=== PATIENT | female | born 1930 | race Caucasian/White ===

== ENCOUNTER → 2018-02-20 | Outpatient (CLI) | payer MEDICARE, BC ==
--- NOTE | 2018-02-22 08:22 | MR ---
EXAMINATION TYPE: MR lumbar spine wo/w con DATE OF EXAM: 02/20/2018 COMPARISON: CT lumbar spine February 12, 2018 HISTORY: Pathological fracture in neoplastic disease TECHNIQUE: Multiplanar, multisequence images of the lumbar spine is performed without and with IV contrast, util izing 8.5 mL intravenous Gadavist FINDINGS: Sagittal images of the lumbar spine show vertebral body alignment to appear satisfactory. T here is redemonstration of mild height loss L4 level, there is diffuse low T1 and T2 signal with enha ncement involving the entire vertebra extending into the bilateral pedicles involving entire L4 verte bra. There is additional smaller area of low T1 and T2 signal involving L3 vertebra with enhancement. Findings correlate with lytic lesions on CT. Seen better on CT there is cortical breakthrough on the left with soft tissue mass replacing bone. Multilevel disc desiccation is present. There is moderate disc space narrowing L2-L3 level. Moderate disc space narrowing L5-S1 level is seen. Small posterior disc herniations are noted at these levels effacing anterior thecal sac. Conus medullaris is somewha t low in position ending mid L2 level. No abnormal signal is noted. Axial images show the T12-L1 and L1-L2 levels to appear within normal limits. Sagittal images at L2-L3 level show mild to moderate disc space narrowing with heterogeneous Modic ty pe II endplate changes and mild to moderate anterior spurring. Axial images show mild broad disc bulg e mildly effacing anterior thecal sac. There is mild left greater than right bilateral inferior neura l foraminal narrowing. Mild facet arthropathy bilaterally is noted. Axial images at the L3-L4 level show moderate broad disc bulge effacing anterior thecal sac with mode rate facet degenerative changes and ligamentum flavum hypertrophy effacing posterior lateral thecal s ac. There is mild right greater than left bilateral neural foraminal narrowing. Axial images at the L4-L5 level shows mild mild broad-based posterior disc protrusion mildly effacing anterior thecal sac. There are mild to moderate facet degenerative changes and ligament flavum hyper trophy effacing posterior lateral thecal sac. Bilateral neural foramina are mildly narrowed. Axial images at L5-S1 level shows mild to moderate facet degenerative changes bilaterally. There is b road-based posterior disc protrusion seen. There is mild to moderate bilateral inferior neural forami nal narrowing noted. Spinal canal is minimally effaced anteriorly. No suspicious incidental retroperitoneal findings are seen. Paraspinal muscle shows mild generalized atrophy. IMPRESSION: Confirmation of destructive lesion L4 vertebra without significant posterior retropulsion with additional involvement in the L3 vertebra noted. Underlying malignancy is strongly favored thou gh somewhat unusual there is low T2 signal present. Correlate clinically.
== END ==
LOC: RADMRIMAIN 11:00
PROVIDERS: ATTEND Internal Medicine
DX: M79.89 Other specified soft tissue disorders (principal)
CPT/HCPCS: 82565; 84520; 72158; A9585

== ENCOUNTER → 2018-03-10 | Outpatient (CLI) | payer MEDICARE, BC ==
[2018-03-10 14:27] LABS: Basophils # (A) 0.1 k/uL (0-0.2); Basophils % (A) 1 %; Eosinophils # (A) 0.1 k/uL (0-0.7); Eosinophils % (A) 0 %; HCT 44.8 % (34.0-46.0); HGB 14.7 gm/dL (11.4-16.0); Lymphocytes % (A) 5 %; MCH 32.4 pg (25.0-35.0); MCHC 32.8 g/dL (31.0-37.0); MCV 98.8 fL (80.0-100.0); Mean Platelet Volume 7.7; Monocytes # (A) 1.2 k/uL (0-1.0); Monocytes % (A) 5 %; Neutrophils # (A) 19.3 k/uL (1.3-7.7); Neutrophils % (A) 88 %; Platelet Count 180 k/uL (150-450); RBC 4.54 m/uL (3.80-5.40); RDW 12.9 % (11.5-15.5); WBC 21.8 k/uL (3.8-10.6)
[2018-03-10 14:43] LABS: Calcium 8.4 mg/dL (8.4-10.2); Potassium 4.6 mmol/L (3.5-5.1); Prothrombin Time 10.7 sec (9.0-12.0)
[2018-03-10 15:02] LABS: Partial Thromboplastin Time 20.6 sec (22.0-30.0)
--- NOTE | 2018-03-10 15:36 | XR ---
EXAMINATION TYPE: XR chest 2V DATE OF EXAM: 03/10/2018 COMPARISON: NONE HISTORY: Shortness of breath TECHNIQUE: Frontal and lateral views of the chest are obtained. FINDINGS: Scattered senescent parenchymal changes noted. Hyperinflation compatible with COPD. No evidence for infiltrate. No evidence for atelectasis. Heart size is stable. Mediastinal structures are stable and grossly unremarkable. No evidence for hilar prominence. Degenerative changes dorsal spine. IMPRESSION: 1. No evidence for acute pulmonary disease.
== END | disposition home or self-care (01) ==
LOC: LABPAT 13:34
PROVIDERS: ATTEND Orthopaedic Surgery Orthopaedic Surgery of the Spine
DX: Z01.818 Encounter for other preprocedural examination (principal); Z01.812 Encounter for preprocedural laboratory examination; M84.40XA Pathological fracture, unspecified site, initial encounter for fracture; Z51.81 Encounter for therapeutic drug level monitoring; Z79.01 Long term (current) use of anticoagulants
CPT/HCPCS: 36415; 71046; 80048; 85025; 85610; 85730; 93005

== ENCOUNTER → 2018-03-11 | Outpatient (CLI) | payer MEDICARE, BC ==
[2018-03-11 12:10] LABS: Appearance,Urine Clear (Clear); Bilirubin,Urine Negative (Negative); Blood,Urine Negative (Negative); Color,Urine Yellow; Glucose,Urine (UA) Negative (Negative); Ketones,Urine Negative (Negative); Leukocyte Esterase,Urine Negative (Negative); Nitrite,Urine Negative (Negative); PH, Urine 6.5 (5.0-8.0); Protein,Urine Negative (Negative); Specific Gravity,Urine 1.022 (1.001-1.035); Urobilinogen,Urine <2.0 mg/dL (<2.0)
== END ==
LOC: LABPAT 10:45
PROVIDERS: ATTEND Orthopaedic Surgery Orthopaedic Surgery of the Spine
DX: Z01.812 Encounter for preprocedural laboratory examination (principal); M84.40XA Pathological fracture, unspecified site, initial encounter for fracture; Z79.01 Long term (current) use of anticoagulants
CPT/HCPCS: 81003

== ENCOUNTER 2018-03-13 10:28 | Day surgery (SDC) | payer MEDICARE, BC ==
[2018-03-10 11:18] VITALS: BMI 31.8
[~2018-03-13 10:28] MED LIST: BACITRACIN 50,000 UNIT, POLYMYXIN B 500,000 UNIT in SODIUM CHLORIDE 0.9% IRRIGATIO 1,00... IRRIGATION ONE; ceFAZolin IN SWFI 2 GM/20 ML SYRINGE IVP ONE
[2018-03-13 11:04] VITALS: RESP 16
[2018-03-13] MEDS ORDERED: LACTATED RINGERS 1,000 ML IV ONE (11:20)
[2018-03-13] MEDS ORDERED: LIDOCAINE 1% 20 ML VIAL (10MG/ML) FOR IV START INTRADERMA ONE (11:21)
[2018-03-13] MEDS ORDERED: ONDANSETRON 4 MG/2 ML VIAL IVP ONE (11:21)
[2018-03-13 11:23] LABS: Glucose,Whole Blood 88 mg/dL (75-99)
[2018-03-13] MEDS ORDERED: PROPOFOL 10 MG/ML 20 ML VIAL IV ONE (12:12)
[2018-03-13] MEDS ORDERED: fentaNYL (PF) 50 MCG/ML 2 ML AMP ONE (12:12)
[2018-03-13] MEDS ORDERED: LIDOCAINE 1% INJ 10MG/ML (20 ML MDV) ONE (12:12)
[2018-03-13] MEDS ORDERED: ePHEDrine 50 MG/ML 1 ML AMP ONE (12:12)
[2018-03-13] MEDS ORDERED: SUCCINYLCHOLINE CHLORIDE 100 MG/5 ML SYR IV ONE (12:12)
[2018-03-13] MEDS ORDERED: BUPIVACAIN-EPI 0.5%-1:200,000 30 ML VIAL SQ ONE ×2 (12:49→13:15)
[2018-03-13] MEDS ORDERED: IOPAMIDOL M200 10 ML VIAL MISCELLANE ONE (12:51)
[2018-03-13] MEDS ORDERED: HYDROcodone/APAP 5-325MG 1 EACH TAB PO PRN ×2 (13:28)
[2018-03-13] MEDS ORDERED: HYDROmorphone 0.5 MG/0.5 ML SYRINGE IVP PRN (13:28)
[2018-03-13] MEDS ORDERED: BENZOCAINE/MENTHOL LOZENG 1 EACH LOZENGE MUCOUS MEM PRN (13:28)
[2018-03-13] MEDS ORDERED: ONDANSETRON 4 MG/2 ML VIAL IVP PRN (13:28)
[2018-03-13 13:30] VITALS: TEMP 96.3
[2018-03-13] MEDS ORDERED: SODIUM CHLORIDE 0.9% 1,000 ML IV SCH (13:30)
--- NOTE | 2018-03-13 13:38 | P.OP ---
Date of Procedure: 03/13/18 Preoperative Diagnosis: L4 pathologic fracture, L3 vertebral body mass, low back pain, history of breast cancer Postoperative Diagnosis: Same Anesthesia: GETA Pathology: other (L4 vertebral body biopsy punch sent to pathology along with L4 bone marrow aspirate, along with L3 vertebral body reamings from drilling to pathology) Condition: stable Disposition: PACU Description of Procedure: BRIEF OPERATIVE NOTE Preoperative Diagnosis: Vertebral pathologic compression fracture at L4, with L3 vertebral body mass, low back pain, history of breast CA Postoperative Diagnosis: Same Procedure: Kyphoplasty of L3 and L4 Vertebral body biopsy of L3 and L4 with aspiration of bone marrow aspirate for pathology at L4 Use of biplanar fluoroscopic guidance Surgeon: Dr. Worthy Gear Generator Set Up Operator: Benji Workman is present throughout the entire the case persistence during positioning, dissection, exposure, visualization, and all crucial elements of the case as well as closure. Anesthesia: General anesthesia Estimated blood loss: Less than 20 mL Specimen: Vertebral body biopsy sent to pathology in formalin from L3 and L4 vertebral bodies as well as a bone marrow aspirate Complications: None apparent Components implanted: Bone cement Disposition: To recovery room in good stable condition. OPERATIVE INDICATIONS The patient has been having issues in their back over the past several weeks. The patient has a history of breast cancer over 12 years ago and had been treated in seen and followed regularly. However she developed some increasing low back pain and she was found have evidence of vertebral pathologic compression fracture at L4. We were contacted by her oncologist and radiation oncologist and asked to obtain biopsy of the area. We will see the patient in the office quickly and discussed with her the possibility of vertebral biopsy along with kyphoplasty to alleviate some of the symptoms from the fracture and possible bone mass at L3 and L4. The patient has been through conservative treatment. She was having significant pain at her low back and some difficulty with her mobilization. They continue to have significant pain and debility due to their fracture. We discussed the issue of obtaining biopsy with the radiation oncologist and they felt that obtaining a vertebral body biopsy would be most helpful for helping determine their treatment. They're uncertain if the issues at the lumbar spine were a new primary issue or stemming from her prior pathology. We discussed various treatment options including surgery, and the patient wishes to proceed with surgery We discussed the risk, patient's alternatives and benefits of surgery including but not limited to, risk of bleeding risk of infection, risk of need for further surgery, risk of decreased , loss of motion, loss of function, cement extravasation, nerve damage, paralysis, heart attack, blindness and . OPERATIVE SUMMARY After discussing all the risks, patient alternatives and benefits at length, the patient elected to proceed with surgical intervention, signed informed consent, and presented for their procedure. The patient was seen and examined in the preoperative holding area and the surgical site was marked. The patient was given antibiotics and brought to the operating room. The patient was sedated and intubated by anesthesia in standard fashion. The patient was positioned on to the operating room table in a prone position on the appropriate well-padded and well molded bilateral chest rolls. We were careful to pad any bony prominences and pressure points. We were careful to maintain the patient's cervical spine and good neutral alignment and position throughout. We used 2 C-arm machines to establish biplanar fluoroscopic guidance in AP and lateral positions. We were able to localize the fractures appropriately. The patient was prepped and draped in a normal standard fashion. An appropriate timeout and keystone protocol performed. We were able to proceed with the surgery. The local wound area was infiltrated with local anesthetic. An incision was made over the lateral aspect of the pedicle over the appropriate levels with a small 2 mm stab incision on the right at both L3 and L4. Intraoperative fluoroscopy was taken which showed a marker at the appropriate level of L3 and L4. With the appropriate level positively confirmed , I was able to position a sharp trocar over the lateral aspect of the pedicle. As able to advance the trocar into the pedicle and into the posterior aspect of vertebral body being careful to avoid penetration cephalad caudad or medially. The trocar was placed appropriately into the posterior aspect of vertebral body at the appropriate levels of L3 and L4. At L4 and used a vertebral bone punch and at L3 we used a bony drill. This was confirmed with C- arm guidance. With the trocar intact I was then able to take a bone biopsy with a biopsy punch or a bony drill. The biopsy specimen was passed off to be sent to pathology in formalin. We also took bone marrow aspirate from L4. I was then able to place the kyphoplasty balloon within the vertebral body at both L3 and L4. The position was checked on C-arm. I was able to inflate the balloon under low pressure and visualization with C-arm. The balloon was well enclosed within the vertebral body. The cement was prepared. With the cement at appropriate working condition the balloons were deflated and removed. I was able to place bony cement with trocar with the cement delivery device under low pressure. It had good fill within the vertebral body. There is no evidence of any extravasation of the cement posteriorly toward the canal. The cement was well contained at the appropriate levels. The cement was allowed to cure appropriately. The trochars removed and final images were taken on C-arm. This showed the cement at the appropriate levels. We were able to proceed with closure. The wound was cleaned and dried and dressed with the appropriate dressing. The drapes were broken down. The patient was gently rolled back onto their hospital bed being careful to maintain their cervical spine and good neutral alignment and position. They were woken up by anesthesia, extubated, and brought to the recovery room in good stable condition. The patient will be admitted to the hospital for observation and for appropriate postoperative care, medical management and monitoring. We will continue to follow them closely about the postoperative course.
--- NOTE | 2018-03-13 13:39 | FL ---
Fluoroscopy HISTORY: Kyphoplasty 56 seconds fluoroscopy time supplied to the referring clinician. 4 intraoperative C-arm images docu ment the procedure. See dictated report from orthopedic surgery.
--- NOTE | 2018-03-13 13:39 | XR ---
Lumbar spine HISTORY: Kyphoplasty 4 intraoperative C-arm images document the procedure
[2018-03-13 15:39] VITALS: BP 154/68; PULSE 59
[2018-03-13] MEDS ORDERED: ceFAZolin IN SWFI 2 GM/20 ML SYRINGE IVP SCH (16:00)
== END 2018-03-13 15:42 | disposition home or self-care (01) ==
LOC: OR 10:28
PROVIDERS: ATTEND Orthopaedic Surgery Orthopaedic Surgery of the Spine
DX: M84.48XA Pathological fracture, other site, initial encounter for fracture (principal); C79.51 Secondary malignant neoplasm of bone; Z85.3 Personal history of malignant neoplasm of breast; I10 Essential (primary) hypertension; E78.00 Pure hypercholesterolemia, unspecified; E03.9 Hypothyroidism, unspecified; Z92.21 Personal history of antineoplastic chemotherapy; Z92.3 Personal history of irradiation; Z80.0 Family history of malignant neoplasm of digestive organs; Z88.5 Allergy status to narcotic agent; Z79.82 Long term (current) use of aspirin; Z79.890 Hormone replacement therapy; Z79.891 Long term (current) use of opiate analgesic; Z79.899 Other long term (current) drug therapy
CPT/HCPCS: 88305; 88173; 88342; 88307; 88311; 88341; 72100; 22514; 22515; C1713; J2405; J2001; J3010; J0330; J2704; J0690; Q9966

== ENCOUNTER 2018-04-16 11:37 | Inpatient (IN) | payer MEDICARE, BC ==
[2018-04-16] MEDS ORDERED: ACETAMINOPHEN TAB 325 MG TAB PO STA (12:30)
--- NOTE | 2018-04-16 12:45 | ED ---
General Adult HPI <Milad Seymour - Last Filed: 04/16/18 17:14> - General Source: patient, EMS, RN notes reviewed Mode of arrival: EMS Limitations: no limitations <Aime Mcclain - Last Filed: 04/16/18 18:14> - General Chief complaint: Weakness Stated complaint: WEAKNESS Time Seen by Provider: 04/16/18 12:20 - History of Present Illness Initial comments: 87-year-old female with a past medical history of hyperlipidemia, hypertension, breast cancer, current bone cancer presents to the emergency department for a chief complaint of weakness 5 days. Patient states she has felt much weaker than normal. Patient states she has developed a cough over the past 5 days as well and this is productive. Patient denies significant shortness of breath or chest pain. Patient states she did not realize she had a fever until she presented here to the emergency department but has felt like she had chills at home. Patient last received radiation about 10 days ago. Patient follows with Dr. Ramon for this. Patient also had dark urine earlier today. Family states patient was somewhat disoriented 5 days ago but this has since resolved. Patient has no other complaints at this time including shortness of breath, chest pain, abdominal pain, nausea or vomiting, headache, or visual changes. ( Aime Mcclain) - Related Data Home Medications Medication Instructions Recorded Confirmed Bisoprolol-Hctz 2.5-6.25 mg [Ziac 1 tab PO DAILY 03/10/18 04/16/18 2.5-6.25 MG] Cholecalciferol [Vitamin D3] 1,000 units PO DAILY 03/10/18 04/16/18 Cholestyramine (with Sugar) 4 gm PO DAILY 03/10/18 04/16/18 [Cholestyramine Packet] Dexamethasone See Taper PO DIRECTED 03/10/18 04/16/18 Levothyroxine Sodium [Synthroid] 25 mcg PO DAILY 03/10/18 04/16/18 traMADol HCL [Ultram] 50 mg PO TID PRN 03/10/18 04/16/18 Aspirin [Adult Low Dose Aspirin EC] 81 mg PO DAILY 03/13/18 04/16/18 Simvastatin [Zocor] 40 mg PO HS 04/16/18 04/16/18 Allergies Allergy/AdvReac Type Severity Reaction Status Date / Time codeine AdvReac Nausea & Verified 04/16/18 13:01 Vomiting Review of Systems ROS Other: All systems not noted in ROS Statement are negative. <Milad Seymour - Last Filed: 04/16/18 17:14> ROS Other: All systems not noted in ROS Statement are negative. <Aime Mcclain - Last Filed: 04/16/18 18:14> ROS Statement: Those systems with pertinent positive or pertinent negative responses have been documented in the HPI. Past Medical History Past Medical History: Cancer, Hyperlipidemia, Hypertension, Thyroid Disorder Additional Past Medical History / Comment(s): HX BREAST CANCER History of Any Multi-Drug Resistant Organisms: None Reported Past Surgical History: Adenoidectomy, Appendectomy, Breast Surgery, Section, Cholecystectomy, Tonsillectomy Additional Past Surgical History / Comment(s): C-SECT X 2. COLONOSCOPY. BILAT CATARACTS. RT BREAST LUMPECTOMY Past Anesthesia/Blood Transfusion Reactions: No Reported Reaction Past Psychological History: No Psychological Hx Reported Smoking Status: Former smoker Past Alcohol Use History: None Reported Past Drug Use History: None Reported - Past Family History Mother Family Medical History: No Reported History <Aime Mcclain P - Last Filed: 04/16/18 18:14> General Exam Limitations: no limitations General appearance: alert, in no apparent distress Head exam: Present: atraumatic, normocephalic, normal inspection Eye exam: Present: normal appearance, PERRL, EOMI. Absent: scleral icterus, conjunctival injection, periorbital swelling ENT exam: Present: normal exam, mucous membranes moist Neck exam: Present: normal inspection, full ROM. Absent: tenderness, meningismus, lymphadenopathy Respiratory exam: Present: rales (crackles noted to LLL). Absent: respiratory distress, wheezes, rhonchi, stridor Cardiovascular Exam: Present: regular rate, normal rhythm, normal heart sounds. Absent: systolic murmur, diastolic murmur, rubs, gallop, clicks GI/Abdominal exam: Present: soft, normal bowel sounds. Absent: distended, tenderness, guarding, rebound, rigid Neurological exam: Present: alert, oriented X3, CN II-XII intact Psychiatric exam: Present: normal affect, normal mood <Aime Mcclain P - Last Filed: 04/16/18 18:14> Vital Signs 04/16/18 04/16/18 04/16/18 11:41 12:00 12:30 Temperature 101.5 F H Pulse Rate 105 H Respiratory 18 Rate Blood Pressure 148/64 148/64 138/84 O2 Sat by Pulse 97 95 95 Oximetry 04/16/18 04/16/18 04/16/18 13:00 13:30 14:00 Temperature Pulse Rate 104 H 99 Respiratory 23 20 Rate Blood Pressure 127/69 127/69 121/60 O2 Sat by Pulse 94 L 97 Oximetry 04/16/18 04/16/18 04/16/18 14:30 14:56 16:00 Temperature Pulse Rate 108 H 94 Respiratory 22 22 19 Rate Blood Pressure 122/69 95/47 O2 Sat by Pulse 95 Oximetry 04/16/18 04/16/18 04/16/18 16:30 17:00 17:30 Temperature Pulse Rate 89 87 90 Respiratory 14 19 18 Rate Blood Pressure 97/46 98/47 111/51 O2 Sat by Pulse 96 96 96 Oximetry EKG Findings - EKG Comments: EKG Findings:: Sinus tachycardia, ventricular rate 102, QRS duration 78, QTC 409 <Aime Mcclain P - Last Filed: 04/16/18 18:14> Medical Decision Making - Lab Data Result diagrams: 04/16/18 14:56 04/16/18 14:56 <Milad Seymour - Last Filed: 04/16/18 17:14> - Lab Data Result diagrams: 04/16/18 14:56 04/16/18 14:56 <Aime Mcclain P - Last Filed: 04/16/18 18:14> - Medical Decision Making Patient reevaluated by myself, Dr. Seymour. Patient is resting comfortably in bed. Patient and family updated on results. Case was discussed with Dr. Ramon , who does recommend admission with IV antibiotics. He is okay with Rocephin. Case was also discussed with detail with Dr. Phillip, who will admit covering for Dr. Stoddard. (Milad Seymour) 87-year-old female with a past medical history of breast cancer to the bone presents to the emergency department for a chief complaint of weakness and fever. Patient has a temperature of 101.5 on presentation. CBC and CMP are unremarkable. Plasma lactic acid 2.1 and a troponin of 0.043. Patient given fluids. Source of infection is likely urine as there are 45 white blood cells. This was established at approximately 1630. Rocephin started within 3 hours of meeting sepsis criteria. Dr. Seymour also saw the patient. At this time patient will be admitted for IV antibiotics and further management. (Aime Mcclain) - Lab Data Lab Results 04/16/18 04/16/18 04/16/18 Range/Units 13:19 13:19 14:56 WBC 6.6 (3.8-10.6) k/uL RBC 3.78 L (3.80-5.40) m/uL Hgb 12.0 (11.4-16.0) gm/dL Hct 37.0 (34.0-46.0) % MCV 97.7 (80.0-100.0) fL MCH 31.8 (25.0-35.0) pg MCHC 32.5 (31.0-37.0) g/dL RDW 14.0 (11.5-15.5) % Plt Count 81 L D (150-450) k/uL Neutrophils % 86 % Lymphocytes % 9 % Monocytes % 3 % Eosinophils % 1 % Basophils % 0 % Neutrophils # 5.7 (1.3-7.7) k/uL Lymphocytes # 0.6 L (1.0-4.8) k/uL Monocytes # 0.2 (0-1.0) k/uL Eosinophils # 0.0 (0-0.7) k/uL Basophils # 0.0 (0-0.2) k/uL PT (9.0-12.0) sec INR (<1.2) APTT (22.0-30.0) sec Sodium (137-145) mmol/L Potassium (3.5-5.1) mmol/L Chloride (98-107) mmol/L Carbon Dioxide (22-30) mmol/L Anion Gap mmol/L BUN (7-17) mg/dL Creatinine (0.52-1.04) mg/dL Est GFR (CKD-EPI)AfAm (>60 ml/min/1.73 sqM) Est GFR (CKD-EPI)NonAf (>60 ml/min/1.73 sqM) Glucose (74-99) mg/dL Plasma Lactic Acid Yuan (0.7-2.0) mmol/L Calcium (8.4-10.2) mg/dL Total Bilirubin (0.2-1.3) mg/dL AST (14-36) U/L ALT (9-52) U/L Alkaline Phosphatase (38-126) U/L Total Creatine Kinase (30-135) U/L CK-MB (CK-2) (0.0-2.4) ng/mL CK-MB (CK-2) Rel Index Troponin I (0.000-0.034) ng/mL Total Protein (6.3-8.2) g/dL Albumin (3.5-5.0) g/dL Urine Color Urine Appearance (Clear) Urine pH (5.0-8.0) Ur Specific Sebree (1.001-1.035) Urine Protein (Negative) Urine Glucose (UA) (Negative) Urine Ketones (Negative) Urine Blood (Negative) Urine Nitrite (Negative) Urine Bilirubin (Negative) Urine Urobilinogen (<2.0) mg/dL Ur Leukocyte Esterase (Negative) Urine RBC (0-5) /hpf Urine WBC (0-5) /hpf Ur Squamous Epith Cells (0-4) /hpf Amorphous Sediment (None) /hpf Hyaline Casts (0-2) /lpf Urine Mucus (None) /hpf Influenza Type A RNA Not Detected (Not Detectd) Influenza Type B (PCR) Not Detected (Not Detectd) Group A Strep Rapid Negative (Negative) 04/16/18 04/16/18 04/16/18 Range/Units 14:56 14:56 14:56 WBC (3.8-10.6) k/uL RBC (3.80-5.40) m/uL Hgb (11.4-16.0) gm/dL Hct (34.0-46.0) % MCV (80.0-100.0) fL MCH (25.0-35.0) pg MCHC (31.0-37.0) g/dL RDW (11.5-15.5) % Plt Count (150-450) k/uL Neutrophils % % Lymphocytes % % Monocytes % % Eosinophils % % Basophils % % Neutrophils # (1.3-7.7) k/uL Lymphocytes # (1.0-4.8) k/uL Monocytes # (0-1.0) k/uL Eosinophils # (0-0.7) k/uL Basophils # (0-0.2) k/uL PT 10.2 (9.0-12.0) sec INR 0.9 (<1.2) APTT 22.5 (22.0-30.0) sec Sodium 139 (137-145) mmol/L Potassium 3.9 (3.5-5.1) mmol/L Chloride 109 H (98-107) mmol/L Carbon Dioxide 26 (22-30) mmol/L Anion Gap 4 mmol/L BUN 17 (7-17) mg/dL Creatinine 0.68 (0.52-1.04) mg/dL Est GFR (CKD-EPI)AfAm >90 (>60 ml/min/1.73 sqM) Est GFR (CKD-EPI)NonAf 80 (>60 ml/min/1.73 sqM) Glucose 145 H (74-99) mg/dL Plasma Lactic Acid Yuan 2.1 H* (0.7-2.0) mmol/L Calcium 8.0 L (8.4-10.2) mg/dL Total Bilirubin 1.1 (0.2-1.3) mg/dL AST 25 (14-36) U/L ALT 38 (9-52) U/L Alkaline Phosphatase 80 (38-126) U/L Total Creatine Kinase (30-135) U/L CK-MB (CK-2) (0.0-2.4) ng/mL CK-MB (CK-2) Rel Index Troponin I (0.000-0.034) ng/mL Total Protein 5.0 L (6.3-8.2) g/dL Albumin 2.4 L (3.5-5.0) g/dL Urine Color Urine Appearance (Clear) Urine pH (5.0-8.0) Ur Specific [place] (1.001-1.035) Urine Protein (Negative) Urine Glucose (UA) (Negative) Urine Ketones (Negative) Urine Blood (Negative) Urine Nitrite (Negative) Urine Bilirubin (Negative) Urine Urobilinogen (<2.0) mg/dL Ur Leukocyte Esterase (Negative) Urine RBC (0-5) /hpf Urine WBC (0-5) /hpf Ur Squamous Epith Cells (0-4) /hpf Amorphous Sediment (None) /hpf Hyaline Casts (0-2) /lpf Urine Mucus (None) /hpf Influenza Type A RNA (Not Detectd) Influenza Type B (PCR) (Not Detectd) Group A Strep Rapid (Negative) 04/16/18 04/16/18 Range/Units 14:56 16:18 WBC (3.8-10.6) k/uL RBC (3.80-5.40) m/uL Hgb (11.4-16.0) gm/dL Hct (34.0-46.0) % MCV (80.0-100.0) fL MCH (25.0-35.0) pg MCHC (31.0-37.0) g/dL RDW (11.5-15.5) % Plt Count (150-450) k/uL Neutrophils % % Lymphocytes % % Monocytes % % Eosinophils % % Basophils % % Neutrophils # (1.3-7.7) k/uL Lymphocytes # (1.0-4.8) k/uL Monocytes # (0-1.0) k/uL Eosinophils # (0-0.7) k/uL Basophils # (0-0.2) k/uL PT (9.0-12.0) sec INR (<1.2) APTT (22.0-30.0) sec Sodium (137-145) mmol/L Potassium (3.5-5.1) mmol/L Chloride (98-107) mmol/L Carbon Dioxide (22-30) mmol/L Anion Gap mmol/L BUN (7-17) mg/dL Creatinine (0.52-1.04) mg/dL Est GFR (CKD-EPI)AfAm (>60 ml/min/1.73 sqM) Est GFR (CKD-EPI)NonAf (>60 ml/min/1.73 sqM) Glucose (74-99) mg/dL Plasma Lactic Acid Yuan (0.7-2.0) mmol/L Calcium (8.4-10.2) mg/dL Total Bilirubin (0.2-1.3) mg/dL AST (14-36) U/L ALT (9-52) U/L Alkaline Phosphatase (38-126) U/L Total Creatine Kinase 98 (30-135) U/L CK-MB (CK-2) 1.1 (0.0-2.4) ng/mL CK-MB (CK-2) Rel Index 1.1 Troponin I 0.043 H* (0.000-0.034) ng/mL Total Protein (6.3-8.2) g/dL Albumin (3.5-5.0) g/dL Urine Color Yellow Urine Appearance Cloudy H (Clear) Urine pH 6.0 (5.0-8.0) Ur Specific [place] 1.023 (1.001-1.035) Urine Protein 2+ H (Negative) Urine Glucose (UA) Trace H (Negative) Urine Ketones Negative (Negative) Urine Blood Trace H (Negative) Urine Nitrite Negative (Negative) Urine Bilirubin Negative (Negative) Urine Urobilinogen 2.0 (<2.0) mg/dL Ur Leukocyte Esterase Negative (Negative) Urine RBC 12 H (0-5) /hpf Urine WBC 45 H (0-5) /hpf Ur Squamous Epith Cells 1 (0-4) /hpf Amorphous Sediment Rare H (None) /hpf Hyaline Casts 14 H (0-2) /lpf Urine Mucus Many H (None) /hpf Influenza Type A RNA (Not Detectd) Influenza Type B (PCR) (Not Detectd) Group A Strep Rapid (Negative) Disposition <Milad Seymour - Last Filed: 04/16/18 17:14> Is patient prescribed a controlled substance at d/c from ED?: No Time of Disposition: 17:32 <Aime Mcclain - Last Filed: 04/16/18 18:14> Clinical Impression: Fever, Urinary tract infection, Thrombocytopenia Disposition: ADMITTED IP TO THIS HOSP Condition: Fair
[2018-04-16] MEDS: SODIUM CHLORIDE 0.9% 500 ML 500 ML IV SCH ×2 (14:54→14:55)
[2018-04-16 15:16] LABS: Basophils % (A) 0 %; Eosinophils % (A) 1 %; Lymphocytes # (A) 0.6 k/uL (1.0-4.8); Lymphocytes % (A) 9 %; MCH 31.8 pg (25.0-35.0); MCHC 32.5 g/dL (31.0-37.0); MCV 97.7 fL (80.0-100.0); Mean Platelet Volume 8.2; Monocytes # (A) 0.2 k/uL (0-1.0); Monocytes % (A) 3 %; Neutrophils # (A) 5.7 k/uL (1.3-7.7); Neutrophils % (A) 86 %; RBC 3.78 m/uL (3.80-5.40); WBC 6.6 k/uL (3.8-10.6)
[2018-04-16 15:17] LABS: Platelet Count 81 k/uL (150-450)
--- NOTE | 2018-04-16 15:17 | XR ---
EXAMINATION TYPE: XR chest 2V DATE OF EXAM: 04/16/2018 COMPARISON: 03/10/2018 INDICATION: Fever TECHNIQUE: Frontal and lateral views of the chest are obtained. FINDINGS: The heart size is normal. The pulmonary vasculature is normal. The lungs are clear. Surgical clips in the right axillary region. IMPRESSION: 1. No suspicious focal consolidation.
[2018-04-16 15:29] LABS: ALT 38 U/L (9-52); AST 25 U/L (14-36); Albumin 2.4 g/dL (3.5-5.0); Alkaline Phosphatase 80 U/L (38-126); Anion Gap 4 mmol/L; Blood Urea Nitrogen 17 mg/dL (7-17); Carbon Dioxide 26 mmol/L (22-30); Chloride 109 mmol/L (98-107); Glucose 145 mg/dL (74-99); Potassium 3.9 mmol/L (3.5-5.1); Sodium 139 mmol/L (137-145); Total Bilirubin 1.1 mg/dL (0.2-1.3)
[2018-04-16 15:32] LABS: INR 0.9 (<1.2); Partial Thromboplastin Time 22.5 sec (22.0-30.0); Prothrombin Time 10.2 sec (9.0-12.0)
[2018-04-16 15:52] LABS: Creatine Kinase MB 1.1 ng/mL (0.0-2.4)
[2018-04-16 15:57] LABS: Troponin I 0.043 ng/mL (0.000-0.034)
[2018-04-16 16:29] LABS: Amorphous Sediment,Urine Rare /hpf; Appearance,Urine Cloudy (Clear); Bilirubin,Urine Negative (Negative); Blood,Urine Trace (Negative); Color,Urine Yellow; Glucose,Urine (UA) Trace (Negative); Hyaline Casts,Urine 14 /lpf (0-2); Ketones,Urine Negative (Negative); Leukocyte Esterase,Urine Negative (Negative); Mucus,Urine Many /hpf; Nitrite,Urine Negative (Negative); Protein,Urine 2+ (Negative); RBC,Urine 12 /hpf (0-5); Specific Gravity,Urine 1.023 (1.001-1.035); Squamous Epithelial Cell,Urine 1 /hpf (0-4); WBC,Urine 45 /hpf (0-5)
[2018-04-16] MEDS ORDERED: NALOXONE 0.4 MG/ML 1 ML VIAL IV PRN (17:29)
[2018-04-16] MEDS ORDERED: traMADol 50 MG TAB PO PRN (17:53)
[2018-04-16] MEDS ORDERED: ACETAMINOPHEN TAB 325 MG TAB PO PRN (17:56)
[2018-04-16] MEDS: SODIUM CHLORIDE 0.9% 1,000 ML IV SCH (18:05)
--- NOTE | 2018-04-16 20:07 | P.HPIM ---
History of Present Illness Chief complaint Weakness History of present illness The patient is an 87-year-old female patient of Dr. Thompson for whom I am covering. Patient was sent to the emergency room. I was called earlier in the day by the sitting at the patient has been weak for several days now. She has had somewhat of a cough the past few days. She was also sleeping more than usual at home and not been able to get up and move about the house the that she is usually able to do on her own. The patient herself now reiterates the weakness that she has had. She denies any unusual pain. She states she has had some chills but no definite fever at home. Mild cough but no marked phlegm production. No nausea or vomiting. She denied any unusual bowel symptoms or diarrhea. She also states she has not had any unusual problems with her urine. 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 Patient has received radiation therapy and apparently about a week ago finished her treatments. A few days after that it does when she developed the present illness. Patient also has hyperlipidemia Hypertension Hypothyroidism on replacement therapy. Surgical history Appendectomy, previous breast surgery, cholecystectomy, section and tonsillectomy. ALLERGIES: Nausea and vomiting with codeine. Home medications Tramadol 50 mg 3 times a day as needed for pain Simvastatin 40 mg at at bedtime for cholesterol Levothyroxine 25 g daily Patient was finishing up a dexamethasone taper. Cholestyramine 4 g daily Vitamin D 3000 units daily Ziac 2.5-6.25 mg 1 daily for blood pressure Aspirin 81 mg daily Review of systems Basically as mentioned in history of present illness. Patient did have a fall more than week ago and developed a contusion to the right forehead with a black eye at that time which has been resolving. She denies any unusual visual disturbances or headaches. She denies any unusual skin rashes or joint swelling. Please see history of present illness for further review of systems. Family history Noncontributory Social history She is a former smoker. No history of any excessive alcohol usage. She does live locally with her . 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 Physical examination Initial temperature on presentation was 101.5 with a pulse of 105 and respirations 18. Blood pressure 140/64 and she is 97% saturated on 2 L. Patient still has some ecchymosis from the fall to the right forehead and periorbital area. She is alert and oriented. Extraocular movements were intact. Pupils equal and reactive. Neck is not stiff. No definite adenopathy palpated. Breast and pelvic exam deferred. Lungs were clear to auscultation. Abdomen is soft and nontender without rebound guarding or masses. Extremities show no edema. Neurologically she is alert and oriented. Cranial nerves intact and no focal peripheral weakness noted. Laboratory White count is 6.6 with a hemoglobin 12 and a platelet count 81. INRs 0.9 with a PTT of 22.5 Sodium is 139 with potassium 3.9 and a CO2 content of 26. BUN of 17 with a creatinine 0.68 given her GFR of 80 Blood sugar was 145. Overall liver function tests were good except for albumin being low at 2.4. Troponin was elevated 0.043. CK normal at 98. Influenza A and B and group A strep rapid was negative Anus lactic acid level was 2.1. Urinalysis did show 45 white cells and 12 RBCs. Leukocyte esterase was negative. EKG showed a sinus tachycardia with Q waves in leads 3 and aVF. No definite acute ischemic changes noted. Rate was 102. Chest x-ray showed no suspicious area of consolidation. Normal heart size. Clear lungs. Impression 1. Sepsis from urinary source with inflammatory systemic response syndrome. Causing diffuse weakness in this 87-year-old female who has underlying breast cancer with metastatic bone disease to the back. 2. Thrombocytopenia 3. Elevated troponin level not likely indicative of coronary artery disease or ischemic heart disease. 4. Hypoalbuminemia with a moderate malnutrition. Also underlying ligament see. 5. Hyperlipidemia 6. Hypothyroidism 7. Hypertension Plans Patient will receive IV fluids. Antibiotics in the form of ceftriaxone have been started. Cultures of blood and urine to follow. Continuing her home medications. Further recommendations pending clinical response and results of above. Her oncologist has been consulted. Dr. Stoddard to resume care tomorrow morning. Past Medical History Past Medical History: Cancer, Hyperlipidemia, Hypertension, Thyroid Disorder Additional Past Medical History / Comment(s): HX BREAST CANCER History of Any Multi-Drug Resistant Organisms: None Reported Past Surgical History: Adenoidectomy, Appendectomy, Breast Surgery, Section, Cholecystectomy, Tonsillectomy Additional Past Surgical History / Comment(s): C-SECT X 2. COLONOSCOPY. BILAT CATARACTS. RT BREAST LUMPECTOMY Past Anesthesia/Blood Transfusion Reactions: No Reported Reaction Past Psychological History: No Psychological Hx Reported Smoking Status: Former smoker Past Alcohol Use History: None Reported Past Drug Use History: None Reported - Past Family History Mother Family Medical History: No Reported History Medications and Allergies Home Medications Medication Instructions Recorded Confirmed Type Bisoprolol-Hctz 2.5-6.25 mg [Ziac 1 tab PO DAILY 03/10/18 04/16/18 History 2.5-6.25 MG] Cholecalciferol [Vitamin D3] 1,000 units PO DAILY 03/10/18 04/16/18 History Cholestyramine (with Sugar) 4 gm PO DAILY 03/10/18 04/16/18 History [Cholestyramine Packet] Dexamethasone See Taper PO DIRECTED 03/10/18 04/16/18 History Levothyroxine Sodium [Synthroid] 25 mcg PO DAILY 03/10/18 04/16/18 History traMADol HCL [Ultram] 50 mg PO TID PRN 03/10/18 04/16/18 History Aspirin [Adult Low Dose Aspirin EC] 81 mg PO DAILY 03/13/18 04/16/18 History Simvastatin [Zocor] 40 mg PO HS 04/16/18 04/16/18 History Allergies Allergy/AdvReac Type Severity Reaction Status Date / Time codeine AdvReac Nausea & Verified 04/16/18 13:01 Vomiting Physical Exam Vitals: Vital Signs Temp Pulse Resp BP Pulse Ox 04/16/18 19:00 92 18 113/60 96 04/16/18 18:30 91 18 117/58 97 04/16/18 18:00 90 16 109/52 95 04/16/18 17:30 90 18 111/51 96 04/16/18 17:00 87 19 98/47 96 04/16/18 16:30 89 14 97/46 96 04/16/18 16:00 94 19 95/47 95 04/16/18 14:56 22 04/16/18 14:30 108 H 22 122/69 04/16/18 14:00 99 20 121/60 97 04/16/18 13:30 104 H 23 127/69 94 L 04/16/18 13:00 127/69 04/16/18 12:30 138/84 95 04/16/18 12:00 148/64 95 04/16/18 11:41 101.5 F H 105 H 18 148/64 97 Intake and Output 04/16/18 04/16/18 04/16/18 06:59 14:59 22:59 Other: Weight 81.193 kg Results CBC & Chem 7: 04/16/18 14:56 04/16/18 14:56 Labs: Abnormal Lab Results - Last 24 Hours (Table) 04/16/18 04/16/18 04/16/18 Range/Units 14:56 14:56 14:56 RBC 3.78 L (3.80-5.40) m/uL Plt Count 81 L D (150-450) k/uL Lymphocytes # 0.6 L (1.0-4.8) k/uL Chloride 109 H (98-107) mmol/L Glucose 145 H (74-99) mg/dL Plasma Lactic Acid Yuan 2.1 H* (0.7-2.0) mmol/L Calcium 8.0 L (8.4-10.2) mg/dL Troponin I (0.000-0.034) ng/mL Total Protein 5.0 L (6.3-8.2) g/dL Albumin 2.4 L (3.5-5.0) g/dL Urine Appearance (Clear) Urine Protein (Negative) Urine Glucose (UA) (Negative) Urine Blood (Negative) Urine RBC (0-5) /hpf Urine WBC (0-5) /hpf Amorphous Sediment (None) /hpf Hyaline Casts (0-2) /lpf Urine Mucus (None) /hpf 04/16/18 04/16/18 Range/Units 14:56 16:18 RBC (3.80-5.40) m/uL Plt Count (150-450) k/uL Lymphocytes # (1.0-4.8) k/uL Chloride (98-107) mmol/L Glucose (74-99) mg/dL Plasma Lactic Acid Yuan (0.7-2.0) mmol/L Calcium (8.4-10.2) mg/dL Troponin I 0.043 H* (0.000-0.034) ng/mL Total Protein (6.3-8.2) g/dL Albumin (3.5-5.0) g/dL Urine Appearance Cloudy H (Clear) Urine Protein 2+ H (Negative) Urine Glucose (UA) Trace H (Negative) Urine Blood Trace H (Negative) Urine RBC 12 H (0-5) /hpf Urine WBC 45 H (0-5) /hpf Amorphous Sediment Rare H (None) /hpf Hyaline Casts 14 H (0-2) /lpf Urine Mucus Many H (None) /hpf
[2018-04-16] MEDS: ATORVASTATIN 20 MG TAB PO SCH (21:34)
[2018-04-17] MEDS: LEVOTHYROXINE 25 MCG TAB PO SCH (06:03)
[2018-04-17] MEDS: SODIUM CHLORIDE 0.9% 1,000 ML IV SCH ×2 (06:04→13:01)
[2018-04-17] MEDS ORDERED: FUROSEMIDE 10 MG/ML 2 ML VIAL IV ONE (08:14)
[2018-04-17] MEDS: CHOLECALCIFEROL 1,000 UNIT TAB PO SCH (08:29)
[2018-04-17] MEDS: BISOPROLOL-HCTZ 2.5-6.25 MG 1 EACH TAB PO SCH (08:29)
[2018-04-17] MEDS: ASPIRIN 81 MG PO SCH (08:29)
[2018-04-17] MEDS: CHOLESTYRAMINE (WITH SUGAR) 4 GM PACKET PO SCH (17:43)
--- NOTE | 2018-04-17 20:36 | XR ---
EXAMINATION TYPE: XR chest 2V DATE OF EXAM: 04/17/2018 COMPARISON: Chest x-ray April 16, 2018 and older studies. HISTORY: Left lower lobe pneumonia. TECHNIQUE: Frontal and lateral views of the chest are obtained. FINDINGS: There is chronic parenchymal change without suspicious new focal air space opacity, pleura l effusion, or pneumothorax seen. Patchy left basilar opacity remains present. The cardiac silhouett e size is stable and upper limits of normal. Mild central vascular congestion is again seen. The os seous structures are demineralized. Right axillary surgical clips are redemonstrated. IMPRESSION: Stable mild central vascular, consider CHF exacerbation or fluid overload state. There i s chronic parenchymal change with persistent patchy left basilar atelectasis and/or infiltrate. No si gnificant change from chest x-ray one day earlier.
[2018-04-17] MEDS: ATORVASTATIN 20 MG TAB PO SCH (21:14)
--- NOTE | 2018-04-17 22:42 | P.CONS ---
History of Present Illness - Reason for Consult Consult date: 04/17/18 Metastatic Breast Cancer Requesting physician: Aime Mcclain - Chief Complaint Debility - History of Present Illness Kusum is a pleasant lady who has a history of a stage II breast cancer involving the right breast which was diagnosed in August 2005. She had a lumpectomy, followed by radiation therapy, and then was treated with dose dense chemotherapy with Adriamycin, Cytoxan, and Taxol. She then completed five years of Femara. She did well until the summer when she started to have progressive back pain,had a CT scan of lumbar spine on 02/12/2018 which revealed destructive lesion in left lateral aspect of L4 vertebral wandy impinging upon the intervertebral foramina on the left and also starting to encraoch upon spinal canal. On 02/20/2018,MRI of lumbar spine confirmed the destructive lesion at L4 and additional involvement of L3. On 03/01/2018,CT scan of chest/abdomen/pelvis was negative for visceral disease. On 03/01/2018,bone scan revealed suspicious uptake at L3 level,otherwise negative. On 03/13/2018,biopsy of L3/L4 was positive for metastatic carcinoma consistent with breast primary,ER+(100%),KS negative,HER2/TIERRA negative by IHC,could not be validated due to decalcified specimen. She completed XRT to L3/L4 on She has recently fallen (2 weeks ago). Since radiation has progressively became weaker. at bedside and claims she is unsteady when walking. Dr. Ramon has recently seen patient and she is starting on Femara and monthly zometa for bone mets. SHe is here to increase performance status. Review of Systems A 14 point review of systems assessed and completed and all negative except HPI Past Medical History Past Medical History: Cancer, Hyperlipidemia, Hypertension, Thyroid Disorder Additional Past Medical History / Comment(s): HX BREAST CANCER History of Any Multi-Drug Resistant Organisms: None Reported Past Surgical History: Adenoidectomy, Appendectomy, Breast Surgery, Section, Cholecystectomy, Tonsillectomy Additional Past Surgical History / Comment(s): C-SECT X 2. COLONOSCOPY. BILAT CATARACTS. RT BREAST LUMPECTOMY Past Anesthesia/Blood Transfusion Reactions: No Reported Reaction Past Psychological History: No Psychological Hx Reported Smoking Status: Former smoker Past Alcohol Use History: None Reported Past Drug Use History: None Reported - Past Family History Mother Family Medical History: No Reported History Medications and Allergies Home Medications Medication Instructions Recorded Confirmed Type Bisoprolol-Hctz 2.5-6.25 mg [Ziac 1 tab PO DAILY 03/10/18 04/16/18 History 2.5-6.25 MG] Cholecalciferol [Vitamin D3] 1,000 units PO DAILY 03/10/18 04/16/18 History Cholestyramine (with Sugar) 4 gm PO DAILY 03/10/18 04/16/18 History [Cholestyramine Packet] Dexamethasone See Taper PO DIRECTED 03/10/18 04/16/18 History Levothyroxine Sodium [Synthroid] 25 mcg PO DAILY 03/10/18 04/16/18 History traMADol HCL [Ultram] 50 mg PO TID PRN 03/10/18 04/16/18 History Aspirin [Adult Low Dose Aspirin EC] 81 mg PO DAILY 03/13/18 04/16/18 History Simvastatin [Zocor] 40 mg PO HS 04/16/18 04/16/18 History Allergies Allergy/AdvReac Type Severity Reaction Status Date / Time codeine AdvReac Nausea & Verified 04/16/18 13:01 Vomiting Physical Exam Vitals: Vital Signs Temp Pulse Resp BP Pulse Ox 04/17/18 21:00 98.9 F 98 16 119/66 94 L 04/17/18 13:00 98.1 F 86 18 125/71 93 L 04/17/18 05:00 97.9 F 106 H 16 156/84 96 04/17/18 00:00 86 16 Intake and Output 04/17/18 04/17/18 04/17/18 06:59 14:59 22:59 Intake Total 450 590 Balance 450 590 Intake: Intake, IV Titration 450 Amount Sodium Chloride 0.9% 1, 450 000 ml @ 75 mls/hr IV . [id number] DOLLY Rx#:[id number] Oral 590 Other: Voiding Method Bedside Commode Bedside Commode Toilet # Voids 1 3 # Bowel Movements 1 1 Gen: NAD, ALert and oriented Neck Supple, no adenopathy Head NC, NT Lungs CTA bilateral Abd: S/ND/NT Heart RRR, S1 Extremities weaker on left than right Results CBC & Chem 7: 04/16/18 14:56 04/16/18 14:56 Labs: Microbiology - Last 24 Hours (Table) 04/16/18 19:56 Blood Culture - Preliminary Blood No Growth after 24 hours 04/16/18 16:18 Urine Culture - Final Urine,Catheterized 04/16/18 14:56 Blood Culture - Preliminary Blood No Growth after 24 hours 04/16/18 13:19 Group A Strep Throat Culture - Preliminary Throat Chest x-ray: report reviewed Assessment and Plan Plan: Assessment and Recs: 1. Metastatic/Recurrent Breast Cancer: - Bones Lumbar SPine - Status POst Radiation therapy - ZOmeta monthly to be initiated this week - Femara to continue while inpatient 2. Debility and Chronic illness myopathy: - Worsening over past week, multifactorial secondary to acute infection (UTI) versus decreased activity with metastatic disease - PT/OT, evaluation for IPR versus KOURTNEY versus outpatient PT - Per Primary team 3. UTI - - Difficulties in urinating, likely secondary to infection - Abx and monitor for improvement Continue Supportive care, monitor for improvement. Consider Imaging of brain if symptoms do not improve Physician Attest: I have completed the full history and physical and devloped the full improession and plan. above dictated as a scribe
--- NOTE | 2018-04-17 22:47 | PN ---
PROGRESS NOTE CHIEF COMPLAINT: Re-evaluation. HISTORY OF PRESENT ILLNESS: This lady was admitted to the hospital after presenting in the emergency room with complaints of generalized weakness. She had fallen and had some bruise on the right side of the face. The patient presented with a fever. She is feeling better, though she is still fairly weak. She has recently completed radiation to the lumbar 5 area, where she had a pathological fracture pertaining to malignancy of the breast which she had 12 years ago. The patient since admission has received IV fluids. She has some increased edema but denies any shortness of breath or cough. Feels better. Fever is down. She is still, though, fairly weak. REVIEW OF SYSTEMS: NEURO: Denies any headaches, dizziness. PSYCH: No anxiety. CARDIAC: No chest pain, angina, palpitations. RESPIRATORY: No shortness of breath. Feels as if her cough is better. GI: No nausea, vomiting, abdominal pain, diarrhea, constipation. : No symptoms of dysuria or hematuria. EXTREMITIES: No pain, edema. CONSTITUTIONAL: No fever, chills. Does have generalized weakness. PHYSICAL EXAMINATION: Pleasant 87-year-old, at present in no distress. Vital signs reveal temperature 97.9, pulse 106, respirations 16, blood pressure 156/84, pulse ox of 96% on 2 L. HEENT: Normocephalic. NECK: No JVD. CHEST: Clear to auscultation with some wet crackles at the left base. CARDIAC: Normal S1, S2 with no gallop. Systolic murmur 2/6, left sternal border. ABDOMEN: Soft. No palpable masses. Bowel sounds normal. No organomegaly. No abdominal bruits. Extremities reveal some edema. She has chronic lymphedema of the right upper extremity and she has some edema of the left leg, left arm and lower legs. Neurologically awake, alert, oriented x3 with well-coordinated movements. LABORATORY ASSESSMENT: Lactic acid was down to 1.5. Urine culture is also pending. Chest x-ray done reveals infiltrate at the left base; possible congestive cardiac failure not ruled out. ASSESSMENT: 1. Generalized fatigue. 2. Possible left lower lobe pneumonia. 3. Possible urinary tract infection. 4. Carcinoma of the breast with bony metastases. PLAN: Continue present medical regimen. Patient's condition was discussed with the patient. Encouraged increased intake. Will give patient Lasix 20 mg. Obtain chest x-ray. Continue with Rocephin. Prognosis remains guarded. I suspect the patient's fever possibly could have been from a respiratory infection. MMODL / IJN: [id number] /
[2018-04-18] MEDS: SODIUM CHLORIDE 0.9% 1,000 ML IV SCH (03:52)
[2018-04-18] MEDS: LEVOTHYROXINE 25 MCG TAB PO SCH (05:25)
[2018-04-18 08:25] LABS: HCT 36.8 % (34.0-46.0); HGB 11.9 gm/dL (11.4-16.0); MCH 32.4 pg (25.0-35.0); MCHC 32.3 g/dL (31.0-37.0); MCV 100.2 fL (80.0-100.0); Macrocytosis Slight; Mean Platelet Volume 7.7; RBC 3.67 m/uL (3.80-5.40); RDW 14.5 % (11.5-15.5); WBC 7.4 k/uL (3.8-10.6)
[2018-04-18 08:32] LABS: Anion Gap 5 mmol/L; Blood Urea Nitrogen 12 mg/dL (7-17); Calcium 7.1 mg/dL (8.4-10.2); Carbon Dioxide 22 mmol/L (22-30); Chloride 115 mmol/L (98-107); Glucose 84 mg/dL (74-99); Sodium 142 mmol/L (137-145)
[2018-04-18 08:34] LABS: Platelet Count 97 k/uL (150-450)
[2018-04-18 08:39] LABS: Potassium 3.3 mmol/L (3.5-5.1)
[2018-04-18] MEDS: LETROZOLE 2.5 MG TAB PO SCH (08:49)
[2018-04-18] MEDS: BISOPROLOL-HCTZ 2.5-6.25 MG 1 EACH TAB PO SCH (08:49)
[2018-04-18] MEDS: CHOLECALCIFEROL 1,000 UNIT TAB PO SCH (08:49)
[2018-04-18] MEDS: ASPIRIN 81 MG PO SCH (08:49)
[2018-04-18] MEDS: ENOXAPARIN 40 MG/0.4 ML SYRINGE SQ SCH (08:50)
[2018-04-18 11:24] LABS: Erythrocyte Sedimentation Rate 74 mm/hr (0-20)
--- NOTE | 2018-04-18 17:34 | P.PN ---
Subjective Progress Note Date: 04/18/18 Principal diagnosis: low plt Resting during interview up in chair Objective - Vital Signs Vital signs: Vital Signs Temp 99.6 F 04/18/18 12:22 Pulse 92 04/18/18 12:22 Resp 16 04/18/18 12:22 BP 150/72 04/18/18 12:22 Pulse Ox 92 L 04/18/18 12:22 Intake & Output 04/17/18 04/18/18 04/18/18 18:59 06:59 18:59 Intake Total 2029 Balance 2029 Intake: Intake, IV Titration 600 Amount Sodium Chloride 0.9% 1, 600 000 ml @ 75 mls/hr IV . [id number] DOLLY Rx#:[id number] Oral 1430 Other: Voiding Method Toilet Toilet Diaper Incontinent # Voids 3 1 2 # Bowel Movements 1 1 - Exam gen: NAD, ALert and oriented Neck Supple, no adenopathy Head NC, NT Lungs CTA bilateral Abd: S/ND/NT Heart RRR, S1 Extremities weaker on left than right - Labs CBC & Chem 7: 04/18/18 06:58 04/18/18 06:58 Labs: Abnormal Lab Results - Last 24 Hours (Table) 04/18/18 04/18/18 Range/Units 06:58 06:58 RBC 3.67 L (3.80-5.40) m/uL MCV 100.2 H (80.0-100.0) fL Plt Count 97 L (150-450) k/uL ESR 74 H (0-20) mm/hr Potassium 3.3 L (3.5-5.1) mmol/L Chloride 115 H (98-107) mmol/L Creatinine 0.48 L (0.52-1.04) mg/dL Calcium 7.1 L (8.4-10.2) mg/dL Microbiology - Last 24 Hours (Table) 04/16/18 14:56 Blood Culture - Preliminary Blood No Growth after 48 hours 04/16/18 13:19 Group A Strep Throat Culture - Final Throat 04/16/18 19:56 Blood Culture - Preliminary Blood No Growth after 24 hours 04/16/18 16:18 Urine Culture - Final Urine,Catheterized Assessment and Plan Plan: Assessment and Recs: 1. Metastatic/Recurrent Breast Cancer: - Bones Lumbar SPine - Status POst Radiation therapy - ZOmeta monthly to be initiated this week - Femara to continue while inpatient 2. Debility and Chronic illness myopathy: - Worsening over past week, multifactorial secondary to acute infection (UTI) versus decreased activity with metastatic disease - PT/OT, evaluation for IPR versus KOURTNEY versus outpatient PT - Per Primary team 3. UTI - - Difficulties in urinating, likely secondary to infection - Abx and monitor for improvement 4. Thrombicytopenia: Improved - abx versus bone mets Continue Supportive care, monitor for improvement. Consider Imaging of brain if symptoms do not improve Physician Attest: I have completed the full history and physical and devloped the full improession and plan. above dictated as a scribe
[2018-04-18] MEDS: CHOLESTYRAMINE (WITH SUGAR) 4 GM PACKET PO SCH (18:54)
[2018-04-18] MEDS: ATORVASTATIN 20 MG TAB PO SCH (20:11)
--- NOTE | 2018-04-18 23:36 | PN ---
PROGRESS NOTE CHIEF COMPLAINT: Re-evaluation. HISTORY OF PRESENT ILLNESS: This 87-year-old female was admitted to the hospital because of fever and a presumed UTI. The patient also yesterday had some suggestion of respiratory congestion on the left base. Chest x-ray suggested possible infiltrate. We will obtain a repeat x-ray tomorrow. The patient did have a low-grade temperature this morning again and this evening as well at 100.3. White count is normal at 7.4. Platelet count is still on the low side at 97, but better than the 81 she had. The patient's sed rate is 74, potassium 3.3. Electrolytes are good. BNP is 635. REVIEW OF SYSTEMS: NEURO: Denies any headaches, dizziness. PSYCH: No anxiety. CARDIAC: Denies chest pain, angina, palpitations. RESPIRATORY: Has mild cough. No hemoptysis. GI: No nausea, vomiting, abdominal pain, diarrhea. : No symptoms of dysuria or hematuria. EXTREMITIES: No pain. Does have generalized weakness. CONSTITUTIONAL: Low-grade fevers. PHYSICAL EXAMINATION: Pleasant female, at present in no distress. Vital signs reveal temperature 100.2, pulse 85, respirations 16, blood pressure 134/75, pulse ox 96%. HEENT: Normocephalic. NECK: No JVD. CHEST: Clear to auscultation. CARDIAC: Normal S1, S2 with no gallops. Systolic murmur 2/6, left sternal border. ABDOMEN: Soft. No palpable masses. Bowel sounds normal. No organomegaly. No abdominal bruits. Extremities reveal no edema. Good pulses, both upper and lower extremities. NEUROLOGIC: Awake, alert, oriented with well-coordinated movements. LABORATORY ASSESSMENT: White count 7.4, hemoglobin 11.9, platelets 97,000. Potassium 3.3, chloride 115. Calcium 7.1. Albumin is 2.4. Sed rate was 74. ASSESSMENT: 1. Fever, low-grade. 2. Rule out pneumonia. 3. Status post radiation therapy. 4. Status post steroid therapy. 5. History of carcinoma of the breast. 6. Decreased nutritional status. PLAN: Continue present medical regimen. Patient's condition discussed with the patient. Prognosis guarded. If patient exhibits some further mobility, she might be able to be discharged home. Did discuss patient's status with her spouse. The patient is wanting to go home. MMODL / IJN: [id number] /
[2018-04-19] MEDS: LEVOTHYROXINE 25 MCG TAB PO SCH (05:08)
[2018-04-19] MEDS ORDERED: POTASSIUM CHLORIDE ER 10 MEQ TAB.ER.PRT PO STA (07:17)
--- NOTE | 2018-04-19 08:29 | XR ---
EXAMINATION TYPE: XR chest 2V DATE OF EXAM: 04/19/2018 COMPARISON: 01/24/2019 HISTORY: 87-year-old female with cough TECHNIQUE: 2 views FINDINGS: Heart relatively normal size. Aorta within normal limits. New upper lung opacities which appear somew hat peripheral in location. Additional small effusion versus posterior basilar opacity on the lateral view. IMPRESSION: New bilateral airspace disease particularly in the peripheral upper lobes. Additional posterior basil ar opacity versus small effusion. Correlate for possible pulmonary edema. Given somewhat batwing conf iguration to the opacities, eosinophillic pneumonia and RECRE[employer] COUNSELOR are additional differential consideration s.
--- NOTE | 2018-04-19 08:32 | CT ---
EXAMINATION TYPE: CT brain wo con DATE OF EXAM: 04/19/2018 COMPARISON: None HISTORY: 87-year-old female Hypersomnolence, fall, breast cancer TECHNIQUE: Examination was done in axial plane without intravenous contrast. Coronal and sagittal r econstructions performed. CT DLP: 1121 mGycm Automated exposure control for dose reduction was used. FINDINGS: There is no evidence of acute intracranial hemorrhage, acute ischemic changes, mass, mass-effect, or extra-axial fluid collection. There is no effacement of cerebral sulci or basal subarachnoid cister ns. There is no hydrocephalus. There is no midline shift. Carias-white matter distinction is preserv ed. Moderate mucosal thickening maxillary sinuses. Air-fluid level right maxillary sinus. Scattered mild mucosal thickening ethmoid air cells. Mastoid air cells well pneumatized. Orbits and globes appear in tact. Benign basal ganglionic calcifications. Some additional calcifications in the left cerebellar hemisph ere. Mild to moderate generalized supratentorial volume loss with moderate patchy confluence white matter hypodensities in both cerebral hemispheres IMPRESSION: 1. Mild to moderate atrophy and moderate confluent changes of chronic small vessel ischemic disease. No acute intracranial abnormality seen. 2. Correlate for acute on chronic right maxillary sinusitis.
[2018-04-19] MEDS: ENOXAPARIN 40 MG/0.4 ML SYRINGE SQ SCH (10:41)
[2018-04-19] MEDS: ASPIRIN 81 MG PO SCH (10:41)
[2018-04-19] MEDS: BISOPROLOL-HCTZ 2.5-6.25 MG 1 EACH TAB PO SCH (10:41)
[2018-04-19] MEDS: LETROZOLE 2.5 MG TAB PO SCH (10:42)
[2018-04-19] MEDS ORDERED: FUROSEMIDE 10 MG/ML 4 ML VIAL IV STA (11:31)
[2018-04-19] MEDS ORDERED: VANCOMYCIN IV PER PHARMACY 1 EACH MISC MISCELLANE PRN (12:20)
[2018-04-19] MEDS ORDERED: VANCOMYCIN 1,500 MG in SODIUM CHLORIDE 0.9% 250 ML IVPB ONE (13:00)
[2018-04-19] MEDS ORDERED: IPRATROPIUM-ALBUTEROL 3 ML NEB INHALATION PRN (13:25)
[2018-04-19] MEDS: CHOLECALCIFEROL 1,000 UNIT TAB PO SCH (13:35)
--- NOTE | 2018-04-19 13:57 | CDI ---
Documentation Clarification Form Date: 04/19/2018 1:38:51 PM From: Erin PelaezDe LeonGIL, CCDS Admit Date: 04/18/2018 9:33:00 AM Patient Name: Kusum Villanueva Visit Number: [id number] Discharge Date: ATTENTION: The Clinical Documentation Specialists (CDI) and [facility] Coding Staff appreciate your assistance in clarifying documentation. Please respond to the clarification below the line at the bottom and electronically sign. The CDI & [facility] Coding staff will review the response and follow-up if needed. Please note: Queries are made part of the Legal Health Record. If you have any questions, please contact the author of this message via ITS. Dr. Burak Stoddard: Per the ED note & the History & Physical, the patient is admitted with Sepsis from a urinary source, diagnosed with a UTI and ruling out pneumonia. History/Risk Factors: Breast CA, recent diagnosis with lumbar bony metastases status post radiation therapy. Clinical Indicators: Presented with cough, weakness, chills, no fever. VS: T 101.5^, P 105^, R 18, BP 148/64, PO 97 2Lnc LAB: WBC (6.6), Lactic Acid 2.1^^, Troponin 0.043^^ Blood cultures: negative, Urine culture: negative, Group A strep throat culture : negative. Treatment: IV fluid 1000, IV rocephin, IV Narcan, cultures. In your professional opinion, please clarify if these findings signify one of the following conditions, whether the condition is POA, and cause, if known: Sepsis ruled out Sepsis ruled in o With/without Pneumonia: Pneumonia ruled in Pneumonia ruled out Other, please specify Unable to determine Present on Admission o Yes o No (Last Revision: June 2017) MTDD
--- NOTE | 2018-04-19 16:07 | P.PN ---
Subjective Progress Note Date: 04/19/18 Principal diagnosis: low plt no acute changes overnight, await CBC today Objective - Vital Signs Vital signs: Vital Signs Temp 100.6 F H 04/19/18 11:15 Pulse 111 H 04/19/18 11:15 Resp 16 04/19/18 11:15 BP 133/60 04/19/18 11:15 Pulse Ox 92 L 04/19/18 12:32 Intake & Output 04/18/18 04/19/18 04/19/18 18:59 06:59 18:59 Intake Total 970 Balance 970 Intake: Intake, IV Titration 130 Amount Sodium Chloride 0.9% 1, 80 000 ml @ 75 mls/hr IV . [id number] DOLLY Rx#:[id number] cefTRIAXone 1 gm In 50 Sodium Chloride 0.9% 50 ml @ 100 mls/hr IVPB BID DOLLY Rx#:[id number] Oral 840 Other: Voiding Method Toilet Toilet Toilet Diaper Diaper Diaper Incontinent Incontinent Incontinent # Voids 2 - Exam gen: NAD, ALert and oriented Neck Supple, no adenopathy Head NC, NT Lungs CTA bilateral Abd: S/ND/NT Heart RRR, S1 Extremities weaker on left than right - Labs CBC & Chem 7: 04/18/18 06:58 04/18/18 06:58 Labs: Microbiology - Last 24 Hours (Table) 04/16/18 19:56 Blood Culture - Preliminary Blood No Growth after 48 hours 04/16/18 14:56 Blood Culture - Preliminary Blood No Growth after 48 hours 04/16/18 13:19 Group A Strep Throat Culture - Final Throat Assessment and Plan Plan: Assessment and Recs: 1. Metastatic/Recurrent Breast Cancer: - Bones Lumbar SPine - Status POst Radiation therapy - ZOmeta monthly to be initiated this week - Femara to continue while inpatient 2. Debility and Chronic illness myopathy: - Worsening over past week, multifactorial secondary to acute infection (UTI) versus decreased activity with metastatic disease - PT/OT, evaluation for IPR versus KOURTNEY versus outpatient PT - Per Primary team 3. UTI - - Difficulties in urinating, likely secondary to infection - Abx and monitor for improvement 4. Thrombicytopenia: Improved - abx versus bone mets - Await CBC today Continue Supportive care, monitor for improvement. Consider Imaging of brain if symptoms do not improve Physician Attest: I have completed the full history and physical and devloped the full improession and plan. above dictated as a scribe
--- NOTE | 2018-04-19 16:07 | P.CNPUL ---
History of Present Illness Consult date: 04/19/18 Requesting physician: Burak Stoddard Reason for consult: dyspnea, pneumonia, abnormal CXR/CT, other Chief complaint: Acute hypoxemic respiratory failure History of present illness: This is a 87-year-old white female patient of Dr. Stoddard, with past medical history of right breast cancer diagnosed in 2005, status post lumpectomy, and chemoradiation. 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 On 03/13/2018 biopsy of L3/L4 was positive for metastatic carcinoma consistent with breast primary. Patient completed radiation therapy to L3/L4 on 04/07/2018. After radiation treatment patient was experiencing progressive weakness, fatigue, she had fallen at home. She had decreased appetite. She follows with Dr. Ramon who has started the patient on Femara and monthly Zometa for bone metastases. She came into the hospital on 04/16/2018 for the above-mentioned symptoms of weakness, falls, and fatigue. Initial chest x-ray showed no suspicious focal consolidation. Blood work showed white blood cell count of 6.6, hemoglobin of 12.0, platelets are profile was within normal limits, sodium was 139, potassium 3.9, chloride is 109, CO2 was 26, BUN was 17, creatinine was 0.68, LFTs were within normal limits, troponin was mildly elevated at 0.043, proBNP was within normal limits at 635, plasma lactic acid on admission was mildly elevated at 2.1 and improved with hydration at 1.5. Urinalysis showed red blood cells, white blood cells of 45, negative leuks. Influenza screen was negative. Group A strep throat culture, blood culture, urine cultures have been negative thus far. Patient was started on IV Rocephin in the emergency department. Today on 04/19/2018 patient started experiencing acute hypoxemia, her pulse ox is only 88% on 4 L per nasal cannula, she is febrile with a temp of 100.6F, slightly tachycardic. Chest x- ray today showed new bilateral airspace disease in the peripheral upper lobes, small posterior basilar opacity that could reflect underlying infiltrative small effusion. Patient was given 1 dose of IV Lasix 40 mg, antibiotic coverage was switched to Zosyn and vancomycin and this consult was initiated. Review of Systems All systems: negative Constitutional: Reports fatigue, Reports weakness, Denies chills, Denies fever Eyes: denies blurred vision, denies pain Ears, nose, mouth and throat: Denies headache, Denies sore throat Cardiovascular: Denies chest pain, Denies shortness of breath Respiratory: Reports dyspnea, Denies cough Gastrointestinal: Denies abdominal pain, Denies diarrhea, Denies nausea, Denies vomiting Genitourinary: Denies dysuria, Denies hematuria Musculoskeletal: Denies myalgias Integumentary: Denies pruritus, Denies rash Neurological: Denies numbness, Denies weakness Psychiatric: Denies anxiety, Denies depression Endocrine: Denies fatigue, Denies weight change Past Medical History Past Medical History: Cancer, Hyperlipidemia, Hypertension, Thyroid Disorder Additional Past Medical History / Comment(s): HX BREAST CANCER History of Any Multi-Drug Resistant Organisms: None Reported Past Surgical History: Adenoidectomy, Appendectomy, Breast Surgery, Section, Cholecystectomy, Tonsillectomy Additional Past Surgical History / Comment(s): C-SECT X 2. COLONOSCOPY. BILAT CATARACTS. RT BREAST LUMPECTOMY Past Anesthesia/Blood Transfusion Reactions: No Reported Reaction Past Psychological History: No Psychological Hx Reported Smoking Status: Former smoker Past Alcohol Use History: None Reported Past Drug Use History: None Reported - Past Family History Mother Family Medical History: No Reported History Medications and Allergies Home Medications Medication Instructions Recorded Confirmed Type Bisoprolol-Hctz 2.5-6.25 mg [Ziac 1 tab PO DAILY 03/10/18 04/16/18 History 2.5-6.25 MG] Cholecalciferol [Vitamin D3] 1,000 units PO DAILY 03/10/18 04/16/18 History Cholestyramine (with Sugar) 4 gm PO DAILY 03/10/18 04/16/18 History [Cholestyramine Packet] Dexamethasone See Taper PO DIRECTED 03/10/18 04/16/18 History Levothyroxine Sodium [Synthroid] 25 mcg PO DAILY 03/10/18 04/16/18 History traMADol HCL [Ultram] 50 mg PO TID PRN 03/10/18 04/16/18 History Aspirin [Adult Low Dose Aspirin EC] 81 mg PO DAILY 03/13/18 04/16/18 History Simvastatin [Zocor] 40 mg PO HS 04/16/18 04/16/18 History Allergies Allergy/AdvReac Type Severity Reaction Status Date / Time codeine AdvReac Nausea & Verified 04/16/18 13:01 Vomiting Physical Exam Vitals: Vital Signs Temp Pulse Resp BP Pulse Ox 04/19/18 12:32 92 L 04/19/18 11:15 100.6 F H 111 H 16 133/60 88 L 04/19/18 07:59 91 L 04/19/18 06:27 93 90 L 04/19/18 05:00 96.8 F L 108 H 16 141/65 88 L 04/18/18 22:17 16 04/18/18 21:00 100.3 F H 100 16 145/73 91 L 04/18/18 16:00 92 16 Intake and Output 04/18/18 04/19/18 04/19/18 22:59 06:59 14:59 Intake Total 850 120 Balance 850 120 Intake: Intake, IV Titration 130 Amount Sodium Chloride 0.9% 1, 80 000 ml @ 75 mls/hr IV . [id number] DOLLY Rx#:[id number] cefTRIAXone 1 gm In 50 Sodium Chloride 0.9% 50 ml @ 100 mls/hr IVPB BID DOLLY Rx#:[id number] Oral 720 120 Other: Voiding Method Toilet Diaper Incontinent GENERAL EXAM: Alert, pleasant, 87-year-old white female patient currently on 5 L per nasal cannula and O2 sat of 87-88%, comfortable in no apparent distress. HEAD: Normocephalic/atraumatic. EYES: Normal reaction of pupils, equal size. Conjunctiva pink, sclera white. NOSE: Clear with pink turbinates. THROAT: No erythema or exudates. NECK: No masses, no JVD, no thyroid enlargement, no adenopathy. CHEST: No chest wall deformity. Symmetrical expansion. LUNGS: Equal air entry with no crackles, wheeze, rhonchi or dullness. CVS: Regular rate and rhythm, normal S1 and S2, no gallops, no murmurs, no rubs ABDOMEN: Soft, nontender. No hepatosplenomegaly, normal bowel sounds, no guarding or rigidity. EXTREMITIES: No clubbing, no edema, no cyanosis, 2+ pulses and upper and lower extremities. MUSCULOSKELETAL: Muscle strength and tone normal. SPINE: No scoliosis or deformity SKIN: No rashes CENTRAL NERVOUS SYSTEM: Alert and oriented -3. No focal deficits, tone is normal in all 4 extremities. PSYCHIATRIC: Alert and oriented -3. Appropriate affect. Intact judgment and insight. Results - Laboratory Findings CBC and BMP: 04/18/18 06:58 04/18/18 06:58 PT/INR, D-dimer PT 10.2 sec (9.0-12.0) 04/16/18 14:56 INR 0.9 (<1.2) 04/16/18 14:56 Abnormal lab findings: Abnormal Labs 04/16/18 04/16/18 04/16/18 14:56 14:56 14:56 RBC 3.78 L MCV Plt Count 81 L D Lymphocytes # 0.6 L ESR Potassium Chloride 109 H Creatinine Glucose 145 H Plasma Lactic Acid Yuan 2.1 H* Calcium 8.0 L Troponin I Total Protein 5.0 L Albumin 2.4 L Urine Appearance Urine Protein Urine Glucose (UA) Urine Blood Urine RBC Urine WBC Amorphous Sediment Hyaline Casts Urine Mucus 04/16/18 04/16/18 04/18/18 14:56 16:18 06:58 RBC 3.67 L MCV 100.2 H Plt Count 97 L Lymphocytes # ESR 74 H Potassium Chloride Creatinine Glucose Plasma Lactic Acid Yuan Calcium Troponin I 0.043 H* Total Protein Albumin Urine Appearance Cloudy H Urine Protein 2+ H Urine Glucose (UA) Trace H Urine Blood Trace H Urine RBC 12 H Urine WBC 45 H Amorphous Sediment Rare H Hyaline Casts 14 H Urine Mucus Many H 04/18/18 06:58 RBC MCV Plt Count Lymphocytes # ESR Potassium 3.3 L Chloride 115 H Creatinine 0.48 L Glucose Plasma Lactic Acid Yuan Calcium 7.1 L Troponin I Total Protein Albumin Urine Appearance Urine Protein Urine Glucose (UA) Urine Blood Urine RBC Urine WBC Amorphous Sediment Hyaline Casts Urine Mucus - Diagnostic Findings Chest x-ray: report reviewed, image reviewed Additional studies: Brain CT results, EKG reviewed Assessment and Plan Plan: Assessment: #1. Acute hypoxemic respiratory failure multifactorial, secondary to pulmonary edema. Cannot completely rule out underlying pneumonia. Patient is an immunocompromised host #2. History of right breast cancer, status post lumpectomy, and chemoradiation , diagnosed in 2005 #3. Recent recurrence of metastatic breast cancer, patient had a biopsy of L3 and L4 in March 2018 after discovery of destructive bone lesions involving the L3 and L4 with encroachment upon the spinal canal. Biopsy was positive for metastatic carcinoma consistent with breast primary. Patient has recently received radiation treatment #4. Progressive weakness, fatigue, falls at home, decreased appetite and functional performance #5. Lactic acidosis present on admission, improved with IV hydration, and the source of sepsis could include urinary tract infection versus pneumonia #6. Hypertension, hyperlipidemia #7. Hypothyroidism #8. Former smoker #9. Urinary retention Plan: Antibiotic coverage has been switched to Zosyn and vancomycin, we will obtain a set of blood cultures, sputum culture, patient denies any chest pain, no cough or chest congestion, her cough is dry. Hemodynamically patient is stable, IV fluids have been discontinued, patient received a dose of IV Lasix, will monitor for response to diuretics. Today's chest x-ray findings have been reviewed with Dr. Olson, and the findings are more suspicious for pulmonary edema, however cannot completely rule out underlying pneumonia. We'll obtain a echocardiogram, will do the patient additional dose of IV Lasix, place indwelling catheter for accurate I&O's. FiO2 was increased, patient was placed on high flow nasal cannula currently at 10 L. Appears fairly comfortable, and altered mentation, no complaints of shortness of breath or chest pain. Breathing treatments on an as-needed basis, patient does not sound bronchospastic. We'll repeat chest x-ray in the morning. Continue GI and DVT prophylaxis. I performed a history & physical examination of the patient and discussed their management with my nurse practitioner, Corazon Arnold. I reviewed the nurse practitioner's note and agree with the documented findings and plan of care. Lung sounds are positive for diminished breath sounds. The findings and the impression was discussed with the patient. I attest to the documentation by the nurse practitioner. Time with Patient: Greater than 30
[2018-04-19] MEDS: PIPERACILLIN-TAZOBACTAM 3.375 GM in SODIUM CHLORIDE 0.9% 100 ML IVPB SCH (17:05)
[2018-04-19] MEDS: CHOLESTYRAMINE (WITH SUGAR) 4 GM PACKET PO SCH (19:05)
[2018-04-19] MEDS: ATORVASTATIN 20 MG TAB PO SCH (21:21)
[2018-04-19] MEDS: VANCOMYCIN 1,500 MG in SODIUM CHLORIDE 0.9% 250 ML IVPB SCH (21:21)
[2018-04-19] MEDS: FUROSEMIDE 10 MG/ML 4 ML VIAL IV SCH (21:21)
--- NOTE | 2018-04-19 23:01 | PN ---
PROGRESS NOTE ATTENDING PHYSICIAN: Dr. Saravanan Stoddard. CHIEF COMPLAINT: Re-evaluation. HISTORY OF PRESENT ILLNESS: An 87-year-old female was admitted to the hospital with fever. The patient had recently received radiation therapy. The patient was on steroids for this at the same time. She has underlying history of recurrent CA of the breast with metastasis to L5 region. The patient presented with significant weakness. She had fallen at home. Today the nursing staff reports the patient has been fairly somnolent. She has had a bruise on the face which has been fading. In view of this, a CT scan of brain done revealed no evidence of intracranial injury. Chest x-ray done revealed significant changes. Radiologist stated pulmonary edema. This seems to be more peripheral upper lobe edema. Suspected it could be infective process. Patient's BNP is only marginally elevated at 635. The patient is felt to have possible pneumonic process and infective process. The patient was switched from Rocephin to Zosyn and vancomycin. Blood cultures have been negative so far. REVIEW OF SYSTEMS: Patient was seen both in the morning and evening. NEURO: Denies any headaches or dizziness. More alert this evening. PSYCH: No anxiety or depression. CARDIAC: Denies chest pain, angina, palpitations. RESPIRATORY: Denies much cough. No hemoptysis. No orthopnea. GI: No nausea, vomiting, abdominal pain, diarrhea. Appetite fair. : No symptoms of dysuria or hematuria. EXTREMITIES: Denies pain. He has some chronic edema. CONSTITUTIONAL: Low-grade temperature of 100.3. HEENT: Normocephalic, depression. PHYSICAL EXAMINATION: VITAL SIGNS: Temperature is 96.8, pulse 108, respirations 16, blood pressure 141/65, pulse ox of 88 percent on 3 L. Earlier patient had a temperature of 100.3. HEENT: Normocephalic. NECK: Supple. No JVD. Resolving ecchymoses right face. CHEST: Trachea central. Paucity of findings. Lung flannery are fairly clear. Good air flow. The patient is not orthopneic. CARDIAC: Normal S1, S2 with no gallops. Systolic murmur 2/6 left sternal border. ABDOMEN: Soft. No palpable masses. Bowel sounds normal. No organomegaly. No abdominal bruits. EXTREMITIES: Trace edema. NEUROLOGIC: Awake, alert, oriented x3 with well-coordinated movements. The patient was seen this morning and I did contact the spouse and made him aware of the patient's status. The patient was re-evaluated in the evening. She was doing much better. She had a Rose catheter placed because of some urinary retention. ASSESSMENT: 1. Acute respiratory failure. 2. Rule out pneumonic process. 3. Possibility of congestive cardiac failure. 4. Urinary retention. 5. Thrombocytopenia. 6. History of cancer of the breast with recent recurrence after 12 years. 7. Status post radiation therapy. PLAN: The patient clinically is stable, though patient has progressive hypoxia. There is concern about patient's respiratory status. Pulmonary has been asked to see the patient. They did see the patient and I have reviewed their consult at the time of my dictation. When re-evaluated this evening the patient was feeling better. She is still on 10 L of oxygen. She continues to have fairly benign lung findings. No cardiac gallops. MMODL / IJN: [id number] /
[2018-04-20] MEDS: PIPERACILLIN-TAZOBACTAM 3.375 GM in SODIUM CHLORIDE 0.9% 100 ML IVPB SCH ×3 (00:28→17:19)
[2018-04-20] MEDS: LEVOTHYROXINE 25 MCG TAB PO SCH (06:17)
[2018-04-20 08:16] LABS: Basophils % (A) 0 %; Eosinophils % (A) 0 %; HCT 32.8 % (34.0-46.0); HGB 10.8 gm/dL (11.4-16.0); Lymphocytes # (A) 0.3 k/uL (1.0-4.8); Lymphocytes % (A) 4 %; MCH 32.6 pg (25.0-35.0); MCHC 32.8 g/dL (31.0-37.0); MCV 99.3 fL (80.0-100.0); Mean Platelet Volume 8.7; Monocytes # (A) 0.2 k/uL (0-1.0); Monocytes % (A) 2 %; Neutrophils # (A) 6.7 k/uL (1.3-7.7); Neutrophils % (A) 93 %; RBC 3.31 m/uL (3.80-5.40); RDW 14.2 % (11.5-15.5); WBC 7.2 k/uL (3.8-10.6)
[2018-04-20 08:20] LABS: Anion Gap 4 mmol/L; Blood Urea Nitrogen 14 mg/dL (7-17); Calcium 6.9 mg/dL (8.4-10.2); Carbon Dioxide 31 mmol/L (22-30); Chloride 108 mmol/L (98-107); Glucose 97 mg/dL (74-99); Platelet Count 99 k/uL (150-450); Sodium 143 mmol/L (137-145)
[2018-04-20 08:34] LABS: Potassium 2.4 mmol/L (3.5-5.1)
--- NOTE | 2018-04-20 08:57 | ECHOF ---
Referral Reason:assess LV function MEASUREMENTS -------- HEIGHT: 160.0 cm WEIGHT: 81.2 kg BP: 121/60 RVIDd: 2.6 cm (< 3.3) IVSd: 1.4 cm (0.6 - 1.1) LVIDd: 3.6 cm (3.9 - 5.3) LVPWd: 1.3 cm (0.6 - 1.1) IVSs: 1.5 cm LVIDs: 2.3 cm LVPWs: 1.4 cm LAESV Index (A-L): 20.81 ml/m Ao Diam: 2.8 cm (2.0 - 3.7) AV Cusp: 1.5 cm (1.5 - 2.6) LA Diam: 3.2 cm (2.7 - 3.8) MV E Sriram: 0.73 m/s MV DecT: 378 ms MV A Sriram: 1.22 m/s MV E/A Ratio: 0.60 AR PHT: 549 ms RAP: 5.00 mmHg RVSP: 40.54 mmHg FINDINGS -------- Resting tachycardia (HR>100bpm). This was a technically adequate study. The left ventricular size is normal. There is mild concentric left ventricular hypertrophy. Left ventricular systolic function is hyperdynamic with an estimated EF of >70%. The right ventricle is normal in size and function. Normal LA size by volume 22+/-6 ml/m2. The right atrium is normal in size. There is mild aortic valve sclerosis. Trace to mild aortic regurgitation. There is no evidence of aortic stenosis. The mitral valve leaflets are mildly thickened. There is trace to mild mitral regurgitation. Mild tricuspid regurgitation present. There is mild pulmonary hypertension. The right ventricular systolic pressure, as measured by Doppler, is 40.54mmHg. Trace/mild (physiologic) pulmonic regurgitation. The aortic root size is normal. Normal inferior vena cava with normal inspiratory collapse consistent with estimated right atrial pre ssure of 5 mmHg. There is a small, generalized pericardial effusion present. CONCLUSIONS -------- 1. Resting tachycardia (HR>100bpm). 2. This was a technically adequate study. 3. The left ventricular size is normal. 4. There is mild concentric left ventricular hypertrophy. 5. Left ventricular systolic function is hyperdynamic with an estimated EF of >70%. 6. Normal LA size by volume 22+/-6 ml/m2. 7. There is mild aortic valve sclerosis. 8. Trace to mild aortic regurgitation. 9. The mitral valve leaflets are mildly thickened. 10. There is trace to mild mitral regurgitation. 11. Mild tricuspid regurgitation present. 12. There is mild pulmonary hypertension. 13. The right ventricular systolic pressure, as measured by Doppler, is 40.54mmHg. 14. Trace/mild (physiologic) pulmonic regurgitation. 15. The aortic root size is normal. 16. There is a small, generalized pericardial effusion present. THRESHING MACHINE OPERATOR: Ramone Swain RDCS
[2018-04-20] MEDS ORDERED: Potassium Replacement Protocol 1 EACH MISC MISCELLANE PRN (09:33)
[2018-04-20] MEDS: FUROSEMIDE 10 MG/ML 4 ML VIAL IV SCH ×2 (09:38→17:20)
[2018-04-20] MEDS: ASPIRIN 81 MG PO SCH (10:33)
[2018-04-20] MEDS: BISOPROLOL-HCTZ 2.5-6.25 MG 1 EACH TAB PO SCH (10:33)
[2018-04-20] MEDS: ENOXAPARIN 40 MG/0.4 ML SYRINGE SQ SCH (10:34)
[2018-04-20] MEDS: LETROZOLE 2.5 MG TAB PO SCH (10:34)
[2018-04-20] MEDS: VANCOMYCIN 1,500 MG in SODIUM CHLORIDE 0.9% 250 ML IVPB SCH ×2 (11:28→21:41)
[2018-04-20] MEDS: POTASSIUM CHLORIDE 20 MEQ in WATER FOR INJECTION 1 100ML.BAG IVPB SCH ×2 (11:42→17:19)
--- NOTE | 2018-04-20 12:10 | XR ---
EXAMINATION TYPE: XR chest 2V DATE OF EXAM: 04/20/2018 COMPARISON: 04/19/2018 HISTORY: Shortness of breath. History of breast cancer. TECHNIQUE: Frontal and lateral views of the chest are obtained. FINDINGS: Bibasilar interstitial opacities are again seen, similar to the prior degree. Remainder th e lungs are clear. Surgical clips are seen of the right breast. Cardiomediastinal silhouette is stabl e. IMPRESSION: Similar-appearing upper lobe predominant interstitial airspace disease. Findings may rep resent pulmonary hemorrhage or pulmonary edema.
--- NOTE | 2018-04-20 13:05 | P.PN ---
Subjective Progress Note Date: 04/20/18 Principal diagnosis: Acute hypoxic respiratory failure secondary to bilateral pneumonia in immunocompromised patient. This is a 87-year-old white female patient of Dr. Stoddard, with past medical history of right breast cancer diagnosed in 2006, status post lumpectomy, and chemoradiation. 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 On 03/13/2018 biopsy of L3/L4 was positive for metastatic carcinoma consistent with breast primary. Patient completed radiation therapy to L3/L4 on 04/07/2018. After radiation treatment patient was experiencing progressive weakness, fatigue, she had fallen at home. She had decreased appetite. She follows with Dr. Ramon who has started the patient on Femara and monthly Zometa for bone metastases. She came into the hospital on 04/16/2018 for the above-mentioned symptoms of weakness, falls, and fatigue. Initial chest x-ray showed no suspicious focal consolidation. Blood work showed white blood cell count of 6.6, hemoglobin of 12.0, platelets are profile was within normal limits, sodium was 139, potassium 3.9, chloride is 109, CO2 was 26, BUN was 17, creatinine was 0.68, LFTs were within normal limits, troponin was mildly elevated at 0.043, proBNP was within normal limits at 635, plasma lactic acid on admission was mildly elevated at 2.1 and improved with hydration at 1.5. Urinalysis showed red blood cells, white blood cells of 45, negative leuks. Influenza screen was negative. Group A strep throat culture, blood culture, urine cultures have been negative thus far. Patient was started on IV Rocephin in the emergency department. Today on 04/19/2018 patient started experiencing acute hypoxemia, her pulse ox is only 88% on 4 L per nasal cannula, she is febrile with a temp of 100.6F, slightly tachycardic. Chest x- ray today showed new bilateral airspace disease in the peripheral upper lobes, small posterior basilar opacity that could reflect underlying infiltrative small effusion. Patient was given 1 dose of IV Lasix 40 mg, antibiotic coverage was switched to Zosyn and vancomycin and this consult was initiated. Patient was reevaluated today on 04/20/2018, clinically she is feeling much better, her chest x-ray is basically about the same. Continues to have interstitial airspace disease in the upper lobes, seems to be classic for pulmonary edema however patient had a relatively normal echocardiogram, normal BNP level, and chest x-ray did not improve much with diuretics. Patient remains on high flow nasal cannula and her O2 saturation is 93%. She does have a temp of 100.4. No leukocytosis. Her potassium is low down to 2.4, being corrected as per protocol. Blood cultures and urine cultures remain negative so far Objective - Vital Signs Vital signs: Vital Signs Temp 100.4 F H 04/20/18 11:19 Pulse 98 04/20/18 11:19 Resp 18 04/20/18 11:19 BP 107/49 04/20/18 11:19 Pulse Ox 93 L 04/20/18 11:19 Intake & Output 04/19/18 04/20/18 04/20/18 18:59 06:59 18:59 Intake Total 700 Output Total 850 2100 Balance -850 -1400 Intake: Intake, IV Titration 350 Amount Piperacillin-Tazobactam 3 100 .375 gm In Sodium Chloride 0.9% 100 ml @ 25 mls/hr IVPB Q8HR [facility] Rx# :[id number] Vancomycin 1,500 mg In 250 Sodium Chloride 0.9% 250 ml @ 125 mls/hr IVPB Q12HR [facility] Rx#:[id number] Oral 350 Output: Urine 850 2100 Uretheral (Rose) 2100 Other: Voiding Method Toilet Indwelling Catheter Indwelling Catheter Diaper Incontinent - Exam GENERAL EXAM: Alert, pleasant, 87-year-old white female patient currently on high flow nasal cannula, in no distress. HEAD: Evidence of bruising in the periorbital area on the right side secondary to recent fall. EYES: Normal reaction of pupils, equal size. Conjunctiva pink, sclera white. NOSE: Clear with pink turbinates. THROAT: No erythema or exudates. NECK: No masses, no JVD, no thyroid enlargement, no adenopathy. CHEST: No chest wall deformity. Symmetrical expansion. LUNGS: Equal air entry with no crackles, wheeze, rhonchi or dullness. CVS: Regular rate and rhythm, normal S1 and S2, no gallops, no murmurs, no rubs ABDOMEN: Soft, nontender. No hepatosplenomegaly, normal bowel sounds, no guarding or rigidity. EXTREMITIES: No clubbing, no edema, no cyanosis, 2+ pulses and upper and lower extremities. MUSCULOSKELETAL: Muscle strength and tone normal. SPINE: No scoliosis or deformity SKIN: No rashes CENTRAL NERVOUS SYSTEM: Alert and oriented -3. No focal deficits, tone is normal in all 4 extremities. PSYCHIATRIC: Alert and oriented -3. Appropriate affect. Intact judgment and insight. - Labs CBC & Chem 7: 04/20/18 07:53 04/20/18 07:53 Labs: Abnormal Lab Results - Last 24 Hours (Table) 04/20/18 04/20/18 Range/Units 07:53 07:53 RBC 3.31 L (3.80-5.40) m/uL Hgb 10.8 L (11.4-16.0) gm/dL Hct 32.8 L (34.0-46.0) % Plt Count 99 L (150-450) k/uL Lymphocytes # 0.3 L (1.0-4.8) k/uL Potassium 2.4 L* (3.5-5.1) mmol/L Chloride 108 H (98-107) mmol/L Carbon Dioxide 31 H (22-30) mmol/L Calcium 6.9 L (8.4-10.2) mg/dL Microbiology - Last 24 Hours (Table) 04/16/18 19:56 Blood Culture - Preliminary Blood No Growth after 72 hours 04/19/18 14:30 Urine Culture - Preliminary Urine,Catheterized 04/16/18 14:56 Blood Culture - Preliminary Blood No Growth after 72 hours Assessment and Plan Assessment: #1. Acute hypoxemic respiratory failure secondary to bilateral pneumonia involving upper lobes, likely gram-negative in nature. #2. History of right breast cancer, status post lumpectomy, and chemoradiation , diagnosed in 2005 #3. Recent recurrence of metastatic breast cancer, patient had a biopsy of L3 and L4 in March 2018 after discovery of destructive bone lesions involving the L3 and L4 with encroachment upon the spinal canal. Biopsy was positive for metastatic carcinoma consistent with breast primary. Patient has recently received radiation treatment #4. Progressive weakness, fatigue, falls at home, decreased appetite and functional performance #5. Lactic acidosis present on admission, improved with IV hydration, and the source of sepsis likely source is the lungs #6. Hypertension, hyperlipidemia #7. Hypothyroidism #8. Former smoker #9. Urinary retention Recommendation: Continue vancomycin, continue Zosyn, continue to monitor her chest x-ray on a regular basis, reviewed the results of the echocardiogram, reviewed all the labs today, reviewed the chest x-ray, continue present treatment plan, and we will continue to follow. Will also give the patient a trial of Solu-Medrol. Will follow closely. Not a great candidate for bronchoscopy and lavage. Time with Patient: Less than 30
[2018-04-20] MEDS: CHOLECALCIFEROL 1,000 UNIT TAB PO SCH (13:14)
[2018-04-20 15:27] VITALS: BMI 31.6
[2018-04-20] MEDS: methylPREDNISolone SOD SUCCI 40 MG/ML 1 ML VIAL IV SCH (17:20)
[2018-04-20] MEDS: CHOLESTYRAMINE (WITH SUGAR) 4 GM PACKET PO SCH (17:36)
[2018-04-20] MEDS: ATORVASTATIN 20 MG TAB PO SCH (21:42)
--- NOTE | 2018-04-20 23:20 | PN ---
PROGRESS NOTE CHIEF COMPLAINT: Re-evaluation. HISTORY OF PRESENT ILLNESS: This 87-year-old female was admitted to the hospital for low-grade fever and weakness. The patient's initial chest x-rays are normal. The patient upon continued progression of her condition had subsequent x-rays done which revealed significant upper lobe opacifications. The radiologist and shop service technician felt this might be fluid overload. However, we did cover the patient for probable pneumonia because clinically the patient has more suggestion of pneumonia. She is not orthopneic. She will lie flat in bed and had no evidence of any gallops on clinical examination. The patient's echocardiogram comes back today showing ejection fraction of 70% with fairly good function. The hyperdynamic circulation is suggestive more likely to be related to infective process rather than diastolic dysfunction. The patient's x-ray also shows peripheral upper lobe edema rather than central. This would also indicate the patient more likely has a pneumonic process. The patient's temperatures have been down. She is on vancomycin and Zosyn. REVIEW OF SYSTEMS: NEURO: Denies any headaches, dizziness. PSYCH: No anxiety. Does feel less sleepy. CARDIAC: Denies chest pain, angina, palpitations. RESPIRATORY: Denies shortness of breath, cough. GI: No nausea, vomiting, abdominal pain, diarrhea. : No symptoms of dysuria or hematuria. EXTREMITIES: No pain. Does have some edema. CONSTITUTIONAL: No fever or chills. PHYSICAL EXAMINATION: Pleasant female in no distress at present with oxygen at 10 L. She is actually sleeping and is aroused easily. Vital signs revealed temperature 100.4, axillary pulse 98, respirations 18, blood pressure 107/49, pulse ox 93% on 10 L. HEENT: Normocephalic. NECK: No JVD. CHEST EXAMINATION: Relatively clear. CARDIAC: Distant heart sounds S1, S2 with no gallops. Systolic murmur 2/6, left sternal border. ABDOMEN: Soft. No palpable masses. Bowel sounds normal. No organomegaly. No abdominal bruits. Extremities reveal no edema. NEUROLOGIC: Awake, alert, oriented with well-coordinated movements. LABORATORY ASSESSMENT: CBC reveals platelet count 99, hemoglobin 10.8, white count 7.2. Potassium is 2.4. Procalcitonin is high at 0.9, indicative of infective process. ASSESSMENT: 1. Bilateral pneumonia. 2. Acute respiratory failure, hypoxic. 3. History of carcinoma of the breast with metastatic disease, post recent radiation therapy. 4. Thrombocytopenia. 5. Anemia. PLAN: Continue present medical regimen. Patient is on vancomycin and Zosyn. Prognosis remains guarded. Condition was discussed with the patient. MMODL / IJN: [id number] /
[2018-04-21] MEDS: POTASSIUM CHLORIDE 20 MEQ in WATER FOR INJECTION 1 100ML.BAG IVPB SCH ×5 (00:46→20:14)
[2018-04-21] MEDS: PIPERACILLIN-TAZOBACTAM 3.375 GM in SODIUM CHLORIDE 0.9% 100 ML IVPB SCH ×4 (00:46→23:20)
[2018-04-21] MEDS: methylPREDNISolone SOD SUCCI 40 MG/ML 1 ML VIAL IV SCH ×4 (00:46→23:20)
[2018-04-21] MEDS: LEVOTHYROXINE 25 MCG TAB PO SCH (05:55)
[2018-04-21] MEDS: VANCOMYCIN 1,500 MG in SODIUM CHLORIDE 0.9% 250 ML IVPB SCH (07:45)
[2018-04-21] MEDS ORDERED: VANCOMYCIN TROUGH DUE 1 EACH MISC MISCELLANE ONE ×2 (08:00→20:00)
[2018-04-21] MEDS: FUROSEMIDE 10 MG/ML 4 ML VIAL IV SCH ×2 (08:04→20:16)
[2018-04-21] MEDS: ENOXAPARIN 40 MG/0.4 ML SYRINGE SQ SCH (09:25)
[2018-04-21] MEDS: BISOPROLOL-HCTZ 2.5-6.25 MG 1 EACH TAB PO SCH ×2 (09:25→11:02)
[2018-04-21] MEDS: LETROZOLE 2.5 MG TAB PO SCH (09:25)
[2018-04-21] MEDS: ASPIRIN 81 MG PO SCH (09:25)
[2018-04-21 12:19] LABS: Potassium 2.3 mmol/L (3.5-5.1)
[2018-04-21] MEDS ORDERED: Potassium Replacement Protocol 1 EACH MISC MISCELLANE PRN (12:51)
[2018-04-21] MEDS: POTASSIUM CHLORIDE ER 20 MEQ TAB.ER PO SCH ×4 (13:12→23:21)
[2018-04-21] MEDS: CHOLECALCIFEROL 1,000 UNIT TAB PO SCH (13:13)
--- NOTE | 2018-04-21 15:09 | CDI ---
Documentation Clarification Form Date: 04/19/2018 1:38:00 PM From: Erin PelaezDe LeonGIL, CCDS Admit Date: 04/18/2018 9:33:00 AM Patient Name: Kusum Villanueva Visit Number: [id number] Discharge Date: ATTENTION: The Clinical Documentation Specialists (CDI) and [facility] Coding Staff appreciate your assistance in clarifying documentation. Please respond to the clarification below the line at the bottom and electronically sign. The CDI & [facility] Coding staff will review the response and follow-up if needed. Please note: Queries are made part of the Legal Health Record. If you have any questions, please contact the author of this message via ITS. Dr. Burak Stoddard: Per the ED note & the History & Physical, the patient is admitted with Sepsis from a urinary source, diagnosed with a UTI and ruling out pneumonia. History/Risk Factors: Breast CA, recent diagnosis with lumbar bony metastases status post radiation therapy. Clinical Indicators: Presented with cough, weakness, chills, no fever. VS: T 101.5^, P 105^, R 18, BP 148/64, PO 97 2Lnc LAB: WBC (6.6), Lactic Acid 2.1^^, Troponin 0.043^^ Blood cultures: negative, Urine culture: negative, Group A strep throat culture : negative. Treatment: IV fluid 1000, IV rocephin, IV Narcan, cultures. In your professional opinion, please clarify if these findings signify one of the following conditions, whether the condition is POA, and cause, if known: o Sepsis ruled out o Sepsis ruled in o With/without Pneumonia: Pneumonia ruled in Pneumonia ruled out o Other, please specify o Unable to determine Present on Admission o Yes o No (Last Revision: June 2017) MTDD
--- NOTE | 2018-04-21 17:13 | P.PN ---
Subjective Progress Note Date: 04/21/18 Principal diagnosis: Acute hypoxic respiratory failure secondary to bilateral pneumonia in immunocompromised patient. This is a 87-year-old white female patient of Dr. Stoddard, with past medical history of right breast cancer diagnosed in 2006, status post lumpectomy, and chemoradiation. 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 On 03/13/2018 biopsy of L3/L4 was positive for metastatic carcinoma consistent with breast primary. Patient completed radiation therapy to L3/L4 on 04/07/2018. After radiation treatment patient was experiencing progressive weakness, fatigue, she had fallen at home. She had decreased appetite. She follows with Dr. Ramon who has started the patient on Femara and monthly Zometa for bone metastases. She came into the hospital on 04/16/2018 for the above-mentioned symptoms of weakness, falls, and fatigue. Initial chest x-ray showed no suspicious focal consolidation. Blood work showed white blood cell count of 6.6, hemoglobin of 12.0, platelets are profile was within normal limits, sodium was 139, potassium 3.9, chloride is 109, CO2 was 26, BUN was 17, creatinine was 0.68, LFTs were within normal limits, troponin was mildly elevated at 0.043, proBNP was within normal limits at 635, plasma lactic acid on admission was mildly elevated at 2.1 and improved with hydration at 1.5. Urinalysis showed red blood cells, white blood cells of 45, negative leuks. Influenza screen was negative. Group A strep throat culture, blood culture, urine cultures have been negative thus far. Patient was started on IV Rocephin in the emergency department. Today on 04/19/2018 patient started experiencing acute hypoxemia, her pulse ox is only 88% on 4 L per nasal cannula, she is febrile with a temp of 100.6F, slightly tachycardic. Chest x- ray today showed new bilateral airspace disease in the peripheral upper lobes, small posterior basilar opacity that could reflect underlying infiltrative small effusion. Patient was given 1 dose of IV Lasix 40 mg, antibiotic coverage was switched to Zosyn and vancomycin and this consult was initiated. Patient was reevaluated today on 04/20/2018, clinically she is feeling much better, her chest x-ray is basically about the same. Continues to have interstitial airspace disease in the upper lobes, seems to be classic for pulmonary edema however patient had a relatively normal echocardiogram, normal BNP level, and chest x-ray did not improve much with diuretics. Patient remains on high flow nasal cannula and her O2 saturation is 93%. She does have a temp of 100.4. No leukocytosis. Her potassium is low down to 2.4, being corrected as per protocol. Blood cultures and urine cultures remain negative so far Patient was seen again on 04/21/2018, seen for follow-up on her bilateral upper lobe pneumonia. Clinically the patient is feeling better, breathing a lot easier, she remains on antibiotics, and yesterday I added steroids just in case we are dealing with a picture of bronchitis obliterans with organizing pneumonia.labs were reviewed, patient was noted to have a low potassium being corrected as per protocol.slightly elevated pro calcitonin,however clinically the patient is feeling better.she was on high flow nasal cannula at 10 L, and I was able to cut it down to 7 L, O2 sat saturation remains at 94%. Objective - Vital Signs Vital signs: Vital Signs Temp 97.6 F 04/21/18 11:24 Pulse 89 04/21/18 14:48 Resp 18 04/21/18 14:48 BP 111/57 04/21/18 11:24 Pulse Ox 94 L 04/21/18 11:24 Intake & Output 04/20/18 04/21/18 04/21/18 18:59 06:59 18:59 Intake Total 542 503 8922 Output Total 850 1250 1200 Balance -500 -950 30 Weight 81.193 kg Intake: Intake, IV Titration 350 300 550 Amount Piperacillin-Tazobactam 3 100 200 100 .375 gm In Sodium Chloride 0.9% 100 ml @ 25 mls/hr IVPB Q8HR [facility] Rx# :[id number] Potassium Chloride 20 meq 100 100 In Water For Injection 1 100ml.bag @ 50 mls/hr IVPB Q2H [facility] Rx#: [id number] Potassium Chloride 20 meq 100 In Water For Injection 1 100ml.bag @ 50 mls/hr IVPB Q2HR [facility] Rx#: [id number] Vancomycin 1,500 mg In 250 250 Sodium Chloride 0.9% 250 ml @ 125 mls/hr IVPB Q12HR [facility] Rx#:[id number] Oral 680 Output: Urine 850 1250 1200 Uretheral (Rose) 1250 Other: Voiding Method Indwelling Catheter Indwelling Catheter Indwelling Catheter # Voids 2 1 # Bowel Movements 1 - Exam GENERAL EXAM: Alert, pleasant, 87-year-old white female patient currently on high flow nasal cannula, in no distress. HEENT: PERRLA, EOMI, no icterus, minimal bruising noted around the right periorbital area related to recent trauma. NECK: No masses, no JVD, no thyroid enlargement, no adenopathy. CHEST: No chest wall deformity. Symmetrical expansion. LUNGS: Equal air entry with no crackles, wheeze, rhonchi or dullness. CVS: Regular rate and rhythm, normal S1 and S2, no gallops, no murmurs, no rubs ABDOMEN: Soft, nontender. No hepatosplenomegaly, normal bowel sounds, no guarding or rigidity. EXTREMITIES: No clubbing, no edema, no cyanosis, 2+ pulses and upper and lower extremities. MUSCULOSKELETAL: Muscle strength and tone normal. SPINE: No scoliosis or deformity SKIN: No rashes CENTRAL NERVOUS SYSTEM: Alert and oriented -3. No focal deficits, tone is normal in all 4 extremities. PSYCHIATRIC: Alert and oriented -3. Appropriate affect. Intact judgment and insight. - Labs CBC & Chem 7: 04/20/18 07:53 04/21/18 11:38 Labs: Abnormal Lab Results - Last 24 Hours (Table) 04/21/18 Range/Units 11:38 Potassium 2.3 L* (3.5-5.1) mmol/L BUN 19 H (7-17) mg/dL Glucose 140 H (74-99) mg/dL Calcium 6.0 L* (8.4-10.2) mg/dL Microbiology - Last 24 Hours (Table) 04/19/18 13:52 Blood Culture - Preliminary Blood No Growth after 48 hours 04/19/18 14:30 Urine Culture - Final Urine,Catheterized 04/16/18 19:56 Blood Culture - Preliminary Blood No Growth after 96 hours 04/19/18 14:42 Blood Culture - Preliminary Blood No Growth after 24 hours 04/16/18 14:56 Blood Culture - Preliminary Blood No Growth after 96 hours Assessment and Plan Assessment: #1. Acute hypoxemic respiratory failure secondary to bilateral pneumonia involving upper lobes, likely gram-negative in nature. #2. History of right breast cancer, status post lumpectomy, and chemoradiation , diagnosed in 2005 #3. Recent recurrence of metastatic breast cancer, patient had a biopsy of L3 and L4 in March 2018 after discovery of destructive bone lesions involving the L3 and L4 with encroachment upon the spinal canal. Biopsy was positive for metastatic carcinoma consistent with breast primary. Patient has recently received radiation treatment #4. Progressive weakness, fatigue, falls at home, decreased appetite and functional performance #5. Lactic acidosis present on admission, improved with IV hydration, and the source of sepsis likely source is the lungs #6. Hypertension, hyperlipidemia #7. Hypothyroidism #8. Former smoker #9. Urinary retention Recommendation: Continue antibiotics including Zosyn and vancomycin, continue bronchodilators, continue Solu-Medrol, repeat chest x-ray in a.m. Depending on the follow-up chest x-ray, further recommendations will follow. In the meantime I believe the patient is clinically improving. And I'm expecting hopefully some improvement on the chest x-ray tomorrow. We'll continue to follow. Titrate FiO2 down, she was on 10 L high flow, she is presently on 7 L high flow nasal cannula and saturating well. Time with Patient: Less than 30
[2018-04-21] MEDS: CHOLESTYRAMINE (WITH SUGAR) 4 GM PACKET PO SCH (17:31)
[2018-04-21] MEDS: ATORVASTATIN 20 MG TAB PO SCH (20:16)
[2018-04-22] MEDS ORDERED: VANCOMYCIN 1,500 MG in SODIUM CHLORIDE 0.9% 250 ML IVPB SCH (02:00)
[2018-04-22] MEDS: POTASSIUM CHLORIDE ER 20 MEQ TAB.ER PO SCH (07:47)
[2018-04-22] MEDS: ENOXAPARIN 40 MG/0.4 ML SYRINGE SQ SCH (07:47)
[2018-04-22] MEDS: LEVOTHYROXINE 25 MCG TAB PO SCH (07:47)
[2018-04-22] MEDS: BISOPROLOL-HCTZ 2.5-6.25 MG 1 EACH TAB PO SCH ×2 (07:47→08:02)
[2018-04-22] MEDS: CHOLECALCIFEROL 1,000 UNIT TAB PO SCH (07:47)
[2018-04-22] MEDS: ASPIRIN 81 MG PO SCH (07:48)
[2018-04-22] MEDS: FUROSEMIDE 10 MG/ML 4 ML VIAL IV SCH (07:48)
[2018-04-22] MEDS: PIPERACILLIN-TAZOBACTAM 3.375 GM in SODIUM CHLORIDE 0.9% 100 ML IVPB SCH ×2 (07:48→17:25)
[2018-04-22] MEDS: methylPREDNISolone SOD SUCCI 40 MG/ML 1 ML VIAL IV SCH ×2 (07:48→20:06)
--- NOTE | 2018-04-22 07:55 | XR ---
EXAMINATION TYPE: XR chest 1V portable DATE OF EXAM: 04/22/2018 HISTORY: Shortness of breath. COMPARISON: 04/20/2018 TECHNIQUE: Single view of the chest is submitted. FINDINGS: Demonstrated are scattered senescent parenchymal change. Improving but persistent perihilar infiltrates. Follow-up until resolution advised. The heart is stable. Hilar and mediastinal structures are within normal limits. Degenerative changes are seen of the dorsal spine. IMPRESSION: 1. Improving but persistent perihilar infiltrates. Follow-up until resolution advised.
[2018-04-22 08:02] LABS: Calcium 6.5 mg/dL (8.4-10.2); Potassium 3.5 mmol/L (3.5-5.1)
[2018-04-22] MEDS: LETROZOLE 2.5 MG TAB PO SCH (08:20)
--- NOTE | 2018-04-22 09:09 | PN ---
PROGRESS NOTE ATTENDING PHYSICIAN: Dr. Miesha Stoddard. DATE OF SERVICE: 04/21/2018. CHIEF COMPLAINT: Re-evaluation. HISTORY OF PRESENT ILLNESS: This is an 87-year-old female admitted to the hospital because of generalized weakness and fever. She is showing occasional bilateral pneumonia. The patient is significantly hypoxic. She feels better. She is more alert. She denies any other symptoms or chest pain, shortness of breath or cough. She is on oxygen at 10 L nasal cannula. The patient is also followed by ID. The patient also is followed by Pulmonary. Patient is on Zosyn and vancomycin. REVIEW OF SYSTEMS: NEURO: Denies any headaches, dizziness. PSYCH: No anxiety. CARDIAC: No chest pain, angina, palpitation. RESPIRATORY: No shortness of breath, cough. GI: No nausea, vomiting, abdominal pain, diarrhea. : No symptoms of dysuria, hematuria, urgency, frequency, has IDC. EXTREMITIES: No pain. Does have mild to moderate generalized weakness. CONSTITUTIONAL: No fever, chills. PHYSICAL EXAMINATION: Pleasant female at present. No distress. Vital signs reveals temperature 98, pulse 81, respirations 20, blood pressure 104/64, pulse ox 92% on 10 L. HEENT: Normocephalic. NECK: No JVD. CHEST: Clear to auscultation and percussion. CARDIAC: Normal S1, S2 with no gallops. Systolic murmur 2/6 left sternal border. ABDOMEN: Soft. Bowel sounds active. EXTREMITIES: Reveal reveal trace edema. NEUROLOGIC: Awake, alert, oriented with well-coordinated movements. LABORATORY ASSESSMENT: Electrolytes which again revealed a potassium of 2.3. Calcium was 6.0. ASSESSMENT: 1. Bilateral pneumonia. 2. Hypokalemia. 3. Hypocalcemia. 4. Thrombocytopenia. 5. History of breast with metastatic disease. PLAN: Continue present medical regimen. Patient's condition discussed with the patient. Prognosis guarded. Replace potassium. MMODL / IJN: [id number] /
--- NOTE | 2018-04-22 14:07 | P.PN ---
Subjective Progress Note Date: 04/22/18 Principal diagnosis: Acute hypoxic respiratory failure secondary to bilateral pneumonia in immunocompromised patient. This is a 87-year-old white female patient of Dr. Stoddard, with past medical history of right breast cancer diagnosed in 2006, status post lumpectomy, and chemoradiation. 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 On 03/13/2018 biopsy of L3/L4 was positive for metastatic carcinoma consistent with breast primary. Patient completed radiation therapy to L3/L4 on 04/07/2018. After radiation treatment patient was experiencing progressive weakness, fatigue, she had fallen at home. She had decreased appetite. She follows with Dr. Ramon who has started the patient on Femara and monthly Zometa for bone metastases. She came into the hospital on 04/16/2018 for the above-mentioned symptoms of weakness, falls, and fatigue. Initial chest x-ray showed no suspicious focal consolidation. Blood work showed white blood cell count of 6.6, hemoglobin of 12.0, platelets are profile was within normal limits, sodium was 139, potassium 3.9, chloride is 109, CO2 was 26, BUN was 17, creatinine was 0.68, LFTs were within normal limits, troponin was mildly elevated at 0.043, proBNP was within normal limits at 635, plasma lactic acid on admission was mildly elevated at 2.1 and improved with hydration at 1.5. Urinalysis showed red blood cells, white blood cells of 45, negative leuks. Influenza screen was negative. Group A strep throat culture, blood culture, urine cultures have been negative thus far. Patient was started on IV Rocephin in the emergency department. Today on 04/19/2018 patient started experiencing acute hypoxemia, her pulse ox is only 88% on 4 L per nasal cannula, she is febrile with a temp of 100.6F, slightly tachycardic. Chest x- ray today showed new bilateral airspace disease in the peripheral upper lobes, small posterior basilar opacity that could reflect underlying infiltrative small effusion. Patient was given 1 dose of IV Lasix 40 mg, antibiotic coverage was switched to Zosyn and vancomycin and this consult was initiated. Patient was reevaluated today on 04/20/2018, clinically she is feeling much better, her chest x-ray is basically about the same. Continues to have interstitial airspace disease in the upper lobes, seems to be classic for pulmonary edema however patient had a relatively normal echocardiogram, normal BNP level, and chest x-ray did not improve much with diuretics. Patient remains on high flow nasal cannula and her O2 saturation is 93%. She does have a temp of 100.4. No leukocytosis. Her potassium is low down to 2.4, being corrected as per protocol. Blood cultures and urine cultures remain negative so far Patient was seen again on 04/21/2018, seen for follow-up on her bilateral upper lobe pneumonia. Clinically the patient is feeling better, breathing a lot easier, she remains on antibiotics, and yesterday I added steroids just in case we are dealing with a picture of bronchitis obliterans with organizing pneumonia.labs were reviewed, patient was noted to have a low potassium being corrected as per protocol.slightly elevated pro calcitonin,however clinically the patient is feeling better.she was on high flow nasal cannula at 10 L, and I was able to cut it down to 7 L, O2 sat saturation remains at 94%. Patient was reevaluated today on 04/22/2018, continues to gradually feel better, chest x-ray is definitely showing improvement. Cultures remain negative, including blood and urine. No sputum cultures were sent. Patient remains on vancomycin and Zosyn, however I believe at this point the patient could be switched to Augmentin, and that will be decided upon by infectious disease on the case. In the meantime I will switch her Solu-Medrol to prednisone in a.m., and possibly taper the prednisone over the next 2-3 weeks. Patient may have a component of bronchitis obliterans with organizing pneumonia, hence the steroid should be continued.labs today were reviewed, potassium is improving. Electrolytes are relatively unremarkable.CBC is relatively normal. Objective - Vital Signs Vital signs: Vital Signs Temp 97.8 F 04/22/18 12:54 Pulse 78 04/22/18 12:54 Resp 16 04/22/18 12:54 BP 132/63 04/22/18 12:54 Pulse Ox 96 04/22/18 12:54 Intake & Output 04/21/18 04/22/18 04/22/18 18:59 06:59 18:59 Intake Total 1230 350 Output Total 1200 750 200 Balance 30 -400 -200 Intake: Intake, IV Titration 550 350 Amount Piperacillin-Tazobactam 3 100 .375 gm In Sodium Chloride 0.9% 100 ml @ 25 mls/hr IVPB Q8HR [facility] Rx# :[id number] Potassium Chloride 20 meq 100 In Water For Injection 1 100ml.bag @ 50 mls/hr IVPB Q2H [facility] Rx#: [id number] Potassium Chloride 20 meq 100 100 In Water For Injection 1 100ml.bag @ 50 mls/hr IVPB Q2HR [facility] Rx#: [id number] Vancomycin 1,500 mg In 250 Sodium Chloride 0.9% 250 ml @ 125 mls/hr IVPB Q12HR [facility] Rx#:[id number] Vancomycin 1,500 mg In 250 Sodium Chloride 0.9% 250 ml @ 125 mls/hr IVPB Q16H [facility] Rx#:[id number] Oral 680 Output: Urine 1200 750 200 Uretheral (Rose) 750 200 Other: Voiding Method Indwelling Catheter Indwelling Catheter Indwelling Catheter # Voids 1 # Bowel Movements 1 - Exam GENERAL EXAM: Alert, pleasant, 87-year-old white female patient currently on 8 L high flow nasal, being titrated down to HEENT: PERRLA, EOMI, no icterus, minimal bruising noted around the right periorbital area related to recent trauma. NECK: No masses, no JVD, no thyroid enlargement, no adenopathy. CHEST: No chest wall deformity. Symmetrical expansion. LUNGS: Equal air entry with no crackles, wheeze, rhonchi or dullness. CVS: Regular rate and rhythm, normal S1 and S2, no gallops, no murmurs, no rubs ABDOMEN: Soft, nontender. No hepatosplenomegaly, normal bowel sounds, no guarding or rigidity. EXTREMITIES: No clubbing, no edema, no cyanosis, 2+ pulses and upper and lower extremities. MUSCULOSKELETAL: Muscle strength and tone normal. SPINE: No scoliosis or deformity SKIN: No rashes CENTRAL NERVOUS SYSTEM: Alert and oriented -3. No focal deficits, tone is normal in all 4 extremities. PSYCHIATRIC: Alert and oriented -3. Appropriate affect. Intact judgment and insight. - Labs CBC & Chem 7: 04/20/18 07:53 04/22/18 07:09 Labs: Abnormal Lab Results - Last 24 Hours (Table) 04/22/18 Range/Units 07:09 Sodium 146 H (137-145) mmol/L Chloride 110 H (98-107) mmol/L BUN 29 H (7-17) mg/dL Creatinine 1.06 H (0.52-1.04) mg/dL Glucose 116 H (74-99) mg/dL Calcium 6.5 L (8.4-10.2) mg/dL Microbiology - Last 24 Hours (Table) 04/16/18 19:56 Blood Culture - Preliminary Blood No Growth after 120 hours 04/19/18 14:42 Blood Culture - Preliminary Blood No Growth after 48 hours 04/16/18 14:56 Blood Culture - Preliminary Blood No Growth after 120 hours 04/19/18 13:52 Blood Culture - Preliminary Blood No Growth after 48 hours Assessment and Plan Assessment: #1. Acute hypoxemic respiratory failure secondary to bilateral pneumonia involving upper lobes, likely gram-negative in nature.remains on vancomycin and Zosyn, however I have a feeling that the patient could be switched to Augmentin orally and discontinue IV antibiotics. This will be decided upon by infectious disease on the case. #2. History of right breast cancer, status post lumpectomy, and chemoradiation , diagnosed in 2005 #3. Recent recurrence of metastatic breast cancer, patient had a biopsy of L3 and L4 in March 2018 after discovery of destructive bone lesions involving the L3 and L4 with encroachment upon the spinal canal. Biopsy was positive for metastatic carcinoma consistent with breast primary. Patient has recently received radiation treatment #4. Progressive weakness, fatigue, falls at home, decreased appetite and functional performance #5. Lactic acidosis present on admission, improved with IV hydration, and the source of sepsis likely source is the lungs #6. Hypertension, hyperlipidemia #7. Hypothyroidism #8. Former smoker #9. Urinary retention #10 cannot rule out bronchitis obliterans with organizing pneumonia, hence I suggest keeping the patient on steroids, we will change Solu-Medrol tomorrow to prednisone orally and tapered over the next 3 weeks. Recommendation: Continue antibiotics , but can switch to Augmentin, continue Solu-Medrol and switched to prednisone either later today or in a.m. Consider discharge planning by Tuesday. Repeat chest x-ray on Tuesday. We'll continue to follow. At this point, I see no value for placement of a central line or PICC line in this patient. Time with Patient: Less than 30
--- NOTE | 2018-04-22 14:20 | P.PN ---
Subjective Progress Note Date: 04/22/18 Principal diagnosis: Pneumonia This 87-year-old female was admitted to the hospital with a fever and suggestion of early sepsis. Patient's general condition was guarded with associated weakness having had of all at home. At the time of admission chest x -ray was unremarkable it was given the patient may have a urinary tract infection with some mild changes in the urine analysis. Patient admitted and started on Rocephin. Patient's condition did not improve. Urine culture was negative. The patient was felt to have progressive respiratory changes clinically and felt to have probably respiratory infection. X-rays were negative at least twice. Subsequently patient's chest x-ray revealed significant changes in the upper lobes. Patient had no associated orthopnea and the pattern on the chest x-ray was more peripheral than central. Suspicion was more for infective process rather than congestive heart failure. Patient was treated with present IV Lasix and a switch of antibiotics to Zosyn and vancomycin. Patient's condition has gradually improved she is also on IV steroids today she looks the best a chest x-ray is improved patient is hardly any cough. She had no further fever. She has underlying history of carcinoma of the breast recurrent after 12 years has a metastatic lesion and the L5 vertebral. She did have radiation therapy and denies any pain at the site. Patient fairly alert verbalizes an aide to go to rehab. Her appetite remains fair she is actually going to have lunch brought in from out side. REVIEW OF SYSTEMS: Neuro: Denies any headaches dizziness. Psych: Denies any anxiety or depression. Is not hypersomnolent any more Cardiac: Denies chest pain and angina palpitations. Respiratory: Denies shortness of breath cough. GI: Denies nausea vomiting or abdominal pain. No diarrhea or constipation, no bowel movement yet. 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 No edema. Skin: Intact. Constitutional: No fever, chills. Objective - Vital Signs Vital signs: Vital Signs Temp 97.8 F 04/22/18 12:54 Pulse 78 04/22/18 12:54 Resp 16 04/22/18 12:54 BP 132/63 04/22/18 12:54 Pulse Ox 96 04/22/18 12:54 Intake & Output 04/21/18 04/22/18 04/22/18 18:59 06:59 18:59 Intake Total 1230 350 460 Output Total 1200 750 350 Balance 30 -400 110 Intake: Intake, IV Titration 550 350 100 Amount Piperacillin-Tazobactam 3 100 100 .375 gm In Sodium Chloride 0.9% 100 ml @ 25 mls/hr IVPB Q8HR [facility] Rx# :[id number] Potassium Chloride 20 meq 100 In Water For Injection 1 100ml.bag @ 50 mls/hr IVPB Q2H [facility] Rx#: [id number] Potassium Chloride 20 meq 100 100 In Water For Injection 1 100ml.bag @ 50 mls/hr IVPB Q2HR [facility] Rx#: [id number] Vancomycin 1,500 mg In 250 Sodium Chloride 0.9% 250 ml @ 125 mls/hr IVPB Q12HR [facility] Rx#:[id number] Vancomycin 1,500 mg In 250 Sodium Chloride 0.9% 250 ml @ 125 mls/hr IVPB Q16H [facility] Rx#:[id number] Oral 680 360 Output: Urine 1200 750 350 Uretheral (Rose) 750 350 Other: Voiding Method Indwelling Catheter Indwelling Catheter Indwelling Catheter # Voids 1 # Bowel Movements 1 PHYSICAL EXAMINATION: Cooperative, at present in no acute distress. HEENT: Resolving ecchymosis right periorbital and frontal. Neck is supple, no JVD Chest: Clear to auscultation percussion. Cardiac: Normal S1-S2 no gallops no murmur . Abdomen: Soft bowel sounds present. Extremities: No edema no tenderness Neurologically: Awake, alert, oriented with well-coordinated movements. - Labs CBC & Chem 7: 04/20/18 07:53 04/22/18 07:09 Labs: Abnormal Lab Results - Last 24 Hours (Table) 04/22/18 Range/Units 07:09 Sodium 146 H (137-145) mmol/L Chloride 110 H (98-107) mmol/L BUN 29 H (7-17) mg/dL Creatinine 1.06 H (0.52-1.04) mg/dL Glucose 116 H (74-99) mg/dL Calcium 6.5 L (8.4-10.2) mg/dL Microbiology - Last 24 Hours (Table) 04/16/18 19:56 Blood Culture - Preliminary Blood No Growth after 120 hours 04/19/18 14:42 Blood Culture - Preliminary Blood No Growth after 48 hours 04/16/18 14:56 Blood Culture - Preliminary Blood No Growth after 120 hours 04/19/18 13:52 Blood Culture - Preliminary Blood No Growth after 48 hours Assessment and Plan Assessment: ASSESSMENT: 1. Acute respiratory failure. 2. Bilateral pneumonia. 3. Early sepsis resolved. 4. History of carcinoma of the breast with recurrence. 5. Acute urinary retention. 6. Hypokalemia secondary to steroid use and Zosyn and Lasix. PLAN: Continue present medical regimen. Prognosis remains guarded. We'll make arrangements for patient's transfer to nursing facility for rehab meanwhile will discontinue the Rose catheter. Reduce Lasix to 20 mg IV. We'll also decrease patient's steroids to Solu-Medrol 40 mg every 12. Continue with antibiotics at present.
--- NOTE | 2018-04-22 15:30 | P.PN ---
Subjective Progress Note Date: 04/22/18 Principal diagnosis: low plt Seen and evaluated, Cultures remain negative. Calcium level is fluctuating, As she did recently begin AI therapy and will benefit after discharge from biphosphonate will check other causes with a baseline TSH and Vit D which are recommended prior to therapy. Over the counter Calcium is resonable and will be indicated to pursue with outpatient treatment. Her corrected calcium with Albumin is approx 7.7, mild decrease. Likely related to IV fluids, diarrhea, and decreased po intake. Objective - Vital Signs Vital signs: Vital Signs Temp 97.8 F 04/22/18 12:54 Pulse 78 04/22/18 12:54 Resp 16 04/22/18 12:54 BP 132/63 04/22/18 12:54 Pulse Ox 96 04/22/18 12:54 Intake & Output 04/21/18 04/22/18 04/22/18 18:59 06:59 18:59 Intake Total 1230 350 460 Output Total 1200 750 350 Balance 30 -400 110 Intake: Intake, IV Titration 550 350 100 Amount Piperacillin-Tazobactam 3 100 100 .375 gm In Sodium Chloride 0.9% 100 ml @ 25 mls/hr IVPB Q8HR [facility] Rx# :[id number] Potassium Chloride 20 meq 100 In Water For Injection 1 100ml.bag @ 50 mls/hr IVPB Q2H [facility] Rx#: [id number] Potassium Chloride 20 meq 100 100 In Water For Injection 1 100ml.bag @ 50 mls/hr IVPB Q2HR [facility] Rx#: [id number] Vancomycin 1,500 mg In 250 Sodium Chloride 0.9% 250 ml @ 125 mls/hr IVPB Q12HR [facility] Rx#:[id number] Vancomycin 1,500 mg In 250 Sodium Chloride 0.9% 250 ml @ 125 mls/hr IVPB Q16H [facility] Rx#:[id number] Oral 680 360 Output: Urine 1200 750 350 Uretheral (Rose) 750 350 Other: Voiding Method Indwelling Catheter Indwelling Catheter Indwelling Catheter # Voids 1 # Bowel Movements 1 - Exam gen: NAD, ALert and oriented Neck Supple, no adenopathy Head NC, NT Lungs CTA bilateral Abd: S/ND/NT Heart RRR, S1 Extremities weaker on left than right - Labs CBC & Chem 7: 04/20/18 07:53 04/22/18 07:09 Labs: Abnormal Lab Results - Last 24 Hours (Table) 04/22/18 Range/Units 07:09 Sodium 146 H (137-145) mmol/L Chloride 110 H (98-107) mmol/L BUN 29 H (7-17) mg/dL Creatinine 1.06 H (0.52-1.04) mg/dL Glucose 116 H (74-99) mg/dL Calcium 6.5 L (8.4-10.2) mg/dL Microbiology - Last 24 Hours (Table) 04/16/18 19:56 Blood Culture - Preliminary Blood No Growth after 120 hours 04/19/18 14:42 Blood Culture - Preliminary Blood No Growth after 48 hours 04/16/18 14:56 Blood Culture - Preliminary Blood No Growth after 120 hours 04/19/18 13:52 Blood Culture - Preliminary Blood No Growth after 48 hours Assessment and Plan Plan: Assessment and Recs: 1. Metastatic/Recurrent Breast Cancer: - Bones Lumbar SPine - Status POst Radiation therapy - ZOmeta monthly to be initiated after discharged, but will need increase calcium. - Femara to continue while inpatient 2. Debility and Chronic illness myopathy: - Worsening over past week, multifactorial secondary to acute infection (UTI) versus decreased activity with metastatic disease - PT/OT, evaluation for IPR versus KOURTNEY versus outpatient PT - Per Primary team 3. UTI - - Difficulties in urinating, likely secondary to infection - Abx and monitor for improvement 4. Thrombocytopenia: Improved/stable - abx versus bone mets - Await CBC today 5. Hypocalcemia: - Calcium level is fluctuating, As she did recently begin AI therapy and will benefit after discharge from biphosphonate will check other causes with a baseline TSH and Vit D which are recommended prior to therapy. Also OTC Calcium Supplement is also needed with AI therapy - Check Ionized Calcium - Over the counter Calcium is resonable and will be indicated to pursue with outpatient treatment. - Her corrected calcium with Albumin is approx 7.7, mild decrease. Likely related to IV fluids, diarrhea, and decreased po intake. - recheck CMP in am to obtain accurate albumin and corrected calcium levels. - Will need a correct calcium of 8 or higher when discharged for treatment Continue Supportive care, monitor for improvement. Consider Imaging of brain if symptoms do not improve Physician Attest: I have discussed the completed full history and physical and developed the full impression and plan with Violeta Leonard NP. above dictated as a scribe
[2018-04-22] MEDS: POTASSIUM CHLORIDE ER 10 MEQ TAB.ER.PRT PO SCH ×2 (17:25→22:22)
[2018-04-22] MEDS: CHOLESTYRAMINE (WITH SUGAR) 4 GM PACKET PO SCH (17:26)
[2018-04-22] MEDS: ATORVASTATIN 20 MG TAB PO SCH (20:06)
[2018-04-22 23:10] LABS: Iron Saturation 37.68 (12.00-45.00)
[2018-04-23] MEDS: PIPERACILLIN-TAZOBACTAM 3.375 GM in SODIUM CHLORIDE 0.9% 100 ML IVPB SCH ×2 (00:19→09:09)
[2018-04-23] MEDS: LEVOTHYROXINE 25 MCG TAB PO SCH (05:52)
[2018-04-23] MEDS ORDERED: VANCOMYCIN 1,500 MG in SODIUM CHLORIDE 0.9% 250 ML IVPB SCH (06:00)
[2018-04-23 09:00] LABS: Basophils % (A) 0 %; Eosinophils % (A) 0 %; HCT 33.8 % (34.0-46.0); HGB 11.1 gm/dL (11.4-16.0); Lymphocytes # (A) 0.4 k/uL (1.0-4.8); Lymphocytes % (A) 4 %; MCH 33.3 pg (25.0-35.0); Macrocytosis Slight; Mean Platelet Volume 8.8; Monocytes # (A) 0.3 k/uL (0-1.0); Monocytes % (A) 4 %; Neutrophils # (A) 8.8 k/uL (1.3-7.7); Neutrophils % (A) 92 %; RBC 3.34 m/uL (3.80-5.40); RDW 14.5 % (11.5-15.5); WBC 9.6 k/uL (3.8-10.6)
[2018-04-23] MEDS ORDERED: FUROSEMIDE 10 MG/ML 4 ML VIAL IV SCH (09:00)
[2018-04-23 09:04] LABS: Ionized Calcium 4.2 mg/dL (4.5-5.3)
[2018-04-23 09:06] LABS: Platelet Count 163 k/uL (150-450)
[2018-04-23] MEDS: ENOXAPARIN 40 MG/0.4 ML SYRINGE SQ SCH (09:10)
[2018-04-23] MEDS: POTASSIUM CHLORIDE ER 10 MEQ TAB.ER.PRT PO SCH ×3 (09:10→21:34)
[2018-04-23] MEDS: LETROZOLE 2.5 MG TAB PO SCH (09:10)
[2018-04-23] MEDS: ASPIRIN 81 MG PO SCH (09:11)
[2018-04-23] MEDS: methylPREDNISolone SOD SUCCI 40 MG/ML 1 ML VIAL IV SCH (09:11)
[2018-04-23 09:13] LABS: Albumin 2.1 g/dL (3.5-5.0); Calcium 6.9 mg/dL (8.4-10.2); Potassium 3.7 mmol/L (3.5-5.1); Total Bilirubin 0.5 mg/dL (0.2-1.3); Total Protein 4.6 g/dL (6.3-8.2)
--- NOTE | 2018-04-23 13:22 | P.PN ---
Subjective Progress Note Date: 04/23/18 Principal diagnosis: Acute hypoxic respiratory failure secondary to bilateral pneumonia in immunocompromised patient. This is a 87-year-old white female patient of Dr. Stoddard, with past medical history of right breast cancer diagnosed in 2006, status post lumpectomy, and chemoradiation. 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 On 03/13/2018 biopsy of L3/L4 was positive for metastatic carcinoma consistent with breast primary. Patient completed radiation therapy to L3/L4 on 04/07/2018. After radiation treatment patient was experiencing progressive weakness, fatigue, she had fallen at home. She had decreased appetite. She follows with Dr. Ramon who has started the patient on Femara and monthly Zometa for bone metastases. She came into the hospital on 04/16/2018 for the above-mentioned symptoms of weakness, falls, and fatigue. Initial chest x-ray showed no suspicious focal consolidation. Blood work showed white blood cell count of 6.6, hemoglobin of 12.0, platelets are profile was within normal limits, sodium was 139, potassium 3.9, chloride is 109, CO2 was 26, BUN was 17, creatinine was 0.68, LFTs were within normal limits, troponin was mildly elevated at 0.043, proBNP was within normal limits at 635, plasma lactic acid on admission was mildly elevated at 2.1 and improved with hydration at 1.5. Urinalysis showed red blood cells, white blood cells of 45, negative leuks. Influenza screen was negative. Group A strep throat culture, blood culture, urine cultures have been negative thus far. Patient was started on IV Rocephin in the emergency department. Today on 04/19/2018 patient started experiencing acute hypoxemia, her pulse ox is only 88% on 4 L per nasal cannula, she is febrile with a temp of 100.6F, slightly tachycardic. Chest x- ray today showed new bilateral airspace disease in the peripheral upper lobes, small posterior basilar opacity that could reflect underlying infiltrative small effusion. Patient was given 1 dose of IV Lasix 40 mg, antibiotic coverage was switched to Zosyn and vancomycin and this consult was initiated. Patient was reevaluated today on 04/20/2018, clinically she is feeling much better, her chest x-ray is basically about the same. Continues to have interstitial airspace disease in the upper lobes, seems to be classic for pulmonary edema however patient had a relatively normal echocardiogram, normal BNP level, and chest x-ray did not improve much with diuretics. Patient remains on high flow nasal cannula and her O2 saturation is 93%. She does have a temp of 100.4. No leukocytosis. Her potassium is low down to 2.4, being corrected as per protocol. Blood cultures and urine cultures remain negative so far Patient was seen again on 04/21/2018, seen for follow-up on her bilateral upper lobe pneumonia. Clinically the patient is feeling better, breathing a lot easier, she remains on antibiotics, and yesterday I added steroids just in case we are dealing with a picture of bronchitis obliterans with organizing pneumonia.labs were reviewed, patient was noted to have a low potassium being corrected as per protocol.slightly elevated pro calcitonin,however clinically the patient is feeling better.she was on high flow nasal cannula at 10 L, and I was able to cut it down to 7 L, O2 sat saturation remains at 94%. Patient was reevaluated today on 04/22/2018, continues to gradually feel better, chest x-ray is definitely showing improvement. Cultures remain negative, including blood and urine. No sputum cultures were sent. Patient remains on vancomycin and Zosyn, however I believe at this point the patient could be switched to Augmentin, and that will be decided upon by infectious disease on the case. In the meantime I will switch her Solu-Medrol to prednisone in a.m., and possibly taper the prednisone over the next 2-3 weeks. Patient may have a component of bronchitis obliterans with organizing pneumonia, hence the steroid should be continued.labs today were reviewed, potassium is improving. Electrolytes are relatively unremarkable.CBC is relatively normal. Reevaluated today on 04/23/2018, patient is now down to 4 L nasal cannula, saturating quite nicely.her O2 saturation is 92% on 4 L. Clinically improving, chest x-ray was not done today,planning to have a repeat chest x-ray tomorrow. In the meantime the patient was switched already to Augmentin. She is already on oral prednisone, and will likely consider after reviewing the chest x-ray tomorrow possible discharge planning. Clinically again the patient is doing great.labs were reviewed, she had a relatively normal electrolytes, normal CBC, creatinine is up to 1.20. Lasix has been discontinued Objective - Vital Signs Vital signs: Vital Signs Temp 97.9 F 04/23/18 05:00 Pulse 78 04/23/18 08:30 Resp 18 04/23/18 08:30 BP 147/70 04/23/18 05:00 Pulse Ox 92 L 04/23/18 05:44 Intake & Output 04/22/18 04/23/18 04/23/18 18:59 06:59 18:59 Intake Total 460 250 Output Total 875 350 200 Balance -415 -100 -200 Intake: Intake, IV Titration 100 250 Amount Piperacillin-Tazobactam 3 100 .375 gm In Sodium Chloride 0.9% 100 ml @ 25 mls/hr IVPB Q8HR [facility] Rx# :[id number] Vancomycin 1,500 mg In 250 Sodium Chloride 0.9% 250 ml @ 125 mls/hr IVPB Q16H [facility] Rx#:[id number] Oral 360 Output: Urine 875 350 200 Uretheral (Rose) 350 350 200 Other: Voiding Method Indwelling Catheter Indwelling Catheter Indwelling Catheter # Bowel Movements 1 - Exam GENERAL EXAM: revealed, 87-year-old white female patient currently on 4 L nasal cannula asymptomatic HEENT: PERRLA, EOMI, no icterus, minimal bruising noted around the right periorbital area related to recent trauma. NECK: No masses, no JVD, no thyroid enlargement, no adenopathy. CHEST: No chest wall deformity. Symmetrical expansion. LUNGS: Equal air entry with no crackles, wheeze, rhonchi or dullness. CVS: Regular rate and rhythm, normal S1 and S2, no gallops, no murmurs, no rubs ABDOMEN: Soft, nontender. No hepatosplenomegaly, normal bowel sounds, no guarding or rigidity. EXTREMITIES: No clubbing, no edema, no cyanosis, 2+ pulses and upper and lower extremities. MUSCULOSKELETAL: Muscle strength and tone normal. SPINE: No scoliosis or deformity CENTRAL NERVOUS SYSTEM: Alert and oriented -3. No focal deficits, tone is normal in all 4 extremities. PSYCHIATRIC: Alert and oriented -3. Appropriate affect. Intact judgment and insight. - Labs CBC & Chem 7: 04/23/18 08:38 04/23/18 08:38 Labs: Abnormal Lab Results - Last 24 Hours (Table) 04/22/18 04/22/18 04/23/18 Range/Units 07:09 07:09 08:38 RBC (3.80-5.40) m/uL Hgb (11.4-16.0) gm/dL Hct (34.0-46.0) % MCV (80.0-100.0) fL Neutrophils # (1.3-7.7) k/uL Lymphocytes # (1.0-4.8) k/uL Chloride 110 H (98-107) mmol/L BUN 34 H (7-17) mg/dL Creatinine 1.20 H (0.52-1.04) mg/dL Glucose 157 H (74-99) mg/dL Calcium 6.9 L (8.4-10.2) mg/dL Ionized Calcium Kirby 4.2 L (4.5-5.3) mg/dL TIBC 138 L (228-460) ug/dL Ferritin 5465.9 H (10.0-291.0) ng/mL Total Protein 4.6 L (6.3-8.2) g/dL Albumin 2.1 L (3.5-5.0) g/dL Vitamin D 25-Hydroxy 26.5 L (30.0-100.0) ng/mL 04/23/18 Range/Units 08:38 RBC 3.34 L (3.80-5.40) m/uL Hgb 11.1 L (11.4-16.0) gm/dL Hct 33.8 L (34.0-46.0) % MCV 101.0 H (80.0-100.0) fL Neutrophils # 8.8 H (1.3-7.7) k/uL Lymphocytes # 0.4 L (1.0-4.8) k/uL Chloride (98-107) mmol/L BUN (7-17) mg/dL Creatinine (0.52-1.04) mg/dL Glucose (74-99) mg/dL Calcium (8.4-10.2) mg/dL Ionized Calcium Kirby (4.5-5.3) mg/dL TIBC (228-460) ug/dL Ferritin (10.0-291.0) ng/mL Total Protein (6.3-8.2) g/dL Albumin (3.5-5.0) g/dL Vitamin D 25-Hydroxy (30.0-100.0) ng/mL Microbiology - Last 24 Hours (Table) 04/16/18 19:56 Blood Culture - Final Blood No Growth after 144 hours 04/19/18 14:42 Blood Culture - Preliminary Blood No Growth after 72 hours 04/16/18 14:56 Blood Culture - Final Blood No Growth after 144 hours 04/19/18 13:52 Blood Culture - Preliminary Blood No Growth after 72 hours Assessment and Plan Assessment: #1. Acute hypoxemic respiratory failure secondary to bilateral pneumonia involving upper lobes, likely gram-negative in nature.rswitched from vancomycin and Zosyn to Augmentin, and her hypoxia seems to be improving presently down to 4 L nasal cannula. #2. History of right breast cancer, status post lumpectomy, and chemoradiation , diagnosed in 2005 #3. Recent recurrence of metastatic breast cancer, patient had a biopsy of L3 and L4 in March 2018 after discovery of destructive bone lesions involving the L3 and L4 with encroachment upon the spinal canal. Biopsy was positive for metastatic carcinoma consistent with breast primary. Patient has recently received radiation treatment #4. Progressive weakness, fatigue, falls at home, decreased appetite and functional performance, improving since admission. #5. Lactic acidosis present on admission, improved with IV hydration, and the source of sepsis likely pulmonary in nature unless otherwise. #6. Hypertension, hyperlipidemia #7. Hypothyroidism #8. Former smoker #9. Urinary retention #10 cannot rule out bronchitis obliterans with organizing pneumonia, hence I suggest keeping the patient on steroids, we will change Solu-Medrol tomorrow to prednisone orally and tapered over the next 3 weeks. Recommendation: continue Augmentin, continue prednisone, continue bronchodilators, will recommend repeat chest x-ray in a.m., and depending on the chest x-ray findings, further recommendations will follow. Patient may require home O2 for a short time, and she could have close follow-up on outpatient basis if actually discharged home in the next 24 hours. Time with Patient: Less than 30
--- NOTE | 2018-04-23 13:28 | P.PN ---
Subjective Progress Note Date: 04/23/18 [id number] female, admitted to the hospital with a fever. Urine cultures negative blood cultures are negative and eventually chest x-rays reveal evidence of progressive pneumonia suspected gram-negative. Patient treated with Zosyn and vancomycin due to immunocompromised status. She recently received radiation therapy to L5 area for recurrent breast cancer metastasis. She received the breast about 12 years ago involving the right breast. She hasn 't lymphedema of the right upper extremity. Patient also followed by pulmonary. Initially they felt the patient has CHF however it appears the patient more likely has pneumonia which has improved significantly. She has no cough no fever or white count. The patient didn't eat much better today he has no abdominal pains couple of loose minimal stool. No diarrhea. Denies any other symptoms she feels stronger and she did walk a few steps today. Plan is for discharge tomorrow to nursing facility for rehab. Condition discussed with patient and spouse. REVIEW OF SYSTEMS: Neuro: Denies any headaches dizziness. Psych: Denies anxiety depression feels oriented. Cardiac: Denies chest pain and angina palpitations. Respiratory: Denies shortness of breath cough. GI: Denies any nausea vomiting appetite improved denies abdominal pain or diarrhea : Has a Rose catheter denies dysuria hematuria Extremities: Denies pain. No edema. Skin: Intact. Constitutional: No fever, chills. Objective - Vital Signs Vital signs: Vital Signs Temp 97.9 F 04/23/18 05:00 Pulse 78 04/23/18 08:30 Resp 18 04/23/18 08:30 BP 147/70 04/23/18 05:00 Pulse Ox 92 L 04/23/18 05:44 Intake & Output 04/22/18 04/23/18 04/23/18 18:59 06:59 18:59 Intake Total 460 250 Output Total 875 350 200 Balance -415 -100 -200 Intake: Intake, IV Titration 100 250 Amount Piperacillin-Tazobactam 3 100 .375 gm In Sodium Chloride 0.9% 100 ml @ 25 mls/hr IVPB Q8HR [facility] Rx# :[id number] Vancomycin 1,500 mg In 250 Sodium Chloride 0.9% 250 ml @ 125 mls/hr IVPB Q16H [facility] Rx#:[id number] Oral 360 Output: Urine 875 350 200 Uretheral (Rose) 350 350 200 Other: Voiding Method Indwelling Catheter Indwelling Catheter Indwelling Catheter # Bowel Movements 1 PHYSICAL EXAMINATION: Cooperative, at present in no acute distress. HEENT: Neck supple no JVD resolving ecchymosis right face Chest: Clear to auscultation Cardiac: Normal S1-S2 no gallops no murmur . Abdomen: Soft bowel sounds present. Extremities: Trace edema no tenderness Neurologically: Awake, alert, oriented with well-coordinated movements. - Labs CBC & Chem 7: 04/23/18 08:38 04/23/18 08:38 Labs: Abnormal Lab Results - Last 24 Hours (Table) 04/22/18 04/22/18 04/23/18 Range/Units 07:09 07:09 08:38 RBC (3.80-5.40) m/uL Hgb (11.4-16.0) gm/dL Hct (34.0-46.0) % MCV (80.0-100.0) fL Neutrophils # (1.3-7.7) k/uL Lymphocytes # (1.0-4.8) k/uL Chloride 110 H (98-107) mmol/L BUN 34 H (7-17) mg/dL Creatinine 1.20 H (0.52-1.04) mg/dL Glucose 157 H (74-99) mg/dL Calcium 6.9 L (8.4-10.2) mg/dL Ionized Calcium Kirby 4.2 L (4.5-5.3) mg/dL TIBC 138 L (228-460) ug/dL Ferritin 5465.9 H (10.0-291.0) ng/mL Total Protein 4.6 L (6.3-8.2) g/dL Albumin 2.1 L (3.5-5.0) g/dL Vitamin D 25-Hydroxy 26.5 L (30.0-100.0) ng/mL 04/23/18 Range/Units 08:38 RBC 3.34 L (3.80-5.40) m/uL Hgb 11.1 L (11.4-16.0) gm/dL Hct 33.8 L (34.0-46.0) % MCV 101.0 H (80.0-100.0) fL Neutrophils # 8.8 H (1.3-7.7) k/uL Lymphocytes # 0.4 L (1.0-4.8) k/uL Chloride (98-107) mmol/L BUN (7-17) mg/dL Creatinine (0.52-1.04) mg/dL Glucose (74-99) mg/dL Calcium (8.4-10.2) mg/dL Ionized Calcium Kirby (4.5-5.3) mg/dL TIBC (228-460) ug/dL Ferritin (10.0-291.0) ng/mL Total Protein (6.3-8.2) g/dL Albumin (3.5-5.0) g/dL Vitamin D 25-Hydroxy (30.0-100.0) ng/mL Microbiology - Last 24 Hours (Table) 04/16/18 19:56 Blood Culture - Final Blood No Growth after 144 hours 04/19/18 14:42 Blood Culture - Preliminary Blood No Growth after 72 hours 04/16/18 14:56 Blood Culture - Final Blood No Growth after 144 hours 04/19/18 13:52 Blood Culture - Preliminary Blood No Growth after 72 hours Assessment and Plan Assessment: ASSESSMENT: 1. Acute respiratory failure, improved 2. Bilateral pneumonia, improved 3. Early sepsis resolved. 4. History of carcinoma of the breast with recurrence. 5. Acute urinary retention, resolved. 6. Hypokalemia secondary to steroid use and Zosyn and Lasix. PLAN: Continue present medical regimen. Prognosis remains guarded. We'll make arrangements for patient's transfer to nursing facility for rehab meanwhile will DC IV Lasix and switch to prednisone 20 mg daily and Augmentin. Change Lasix to by mouth 20 mg daily. Condition discussed with patient and spouse
[2018-04-23] MEDS ORDERED: ENOXAPARIN 30 MG/0.3 ML SYRINGE SQ SCH (13:40)
[2018-04-23] MEDS: CHOLESTYRAMINE (WITH SUGAR) 4 GM PACKET PO SCH (15:25)
--- NOTE | 2018-04-23 16:04 | P.PN ---
Subjective Progress Note Date: 04/23/18 Principal diagnosis: low plt Seen and evaluated, Ionized calcium 4.2, She has a hard time swallowing calcium pills so calcium carbonate 1000mg was ordered daily. Objective - Vital Signs Vital signs: Vital Signs Temp 97.7 F 04/23/18 13:32 Pulse 92 04/23/18 15:32 Resp 18 04/23/18 15:32 BP 124/58 04/23/18 13:32 Pulse Ox 92 L 04/23/18 05:44 Intake & Output 04/22/18 04/23/18 04/23/18 18:59 06:59 18:59 Intake Total 460 250 360 Output Total 875 350 700 Balance -415 -100 -340 Intake: Intake, IV Titration 100 250 Amount Piperacillin-Tazobactam 3 100 .375 gm In Sodium Chloride 0.9% 100 ml @ 25 mls/hr IVPB Q8HR [facility] Rx# :[id number] Vancomycin 1,500 mg In 250 Sodium Chloride 0.9% 250 ml @ 125 mls/hr IVPB Q16H [facility] Rx#:[id number] Oral 360 360 Output: Urine 875 350 700 Uretheral (Rose) 350 350 200 Other: Voiding Method Indwelling Catheter Indwelling Catheter Indwelling Catheter # Bowel Movements 1 - Exam gen: NAD, ALert and oriented Neck Supple, no adenopathy Head NC, NT Lungs CTA bilateral Abd: S/ND/NT Heart RRR, S1 Extremities weaker on left than right - Labs CBC & Chem 7: 04/23/18 08:38 04/23/18 08:38 Labs: Abnormal Lab Results - Last 24 Hours (Table) 04/22/18 04/22/18 04/23/18 Range/Units 07:09 07:09 08:38 RBC (3.80-5.40) m/uL Hgb (11.4-16.0) gm/dL Hct (34.0-46.0) % MCV (80.0-100.0) fL Neutrophils # (1.3-7.7) k/uL Lymphocytes # (1.0-4.8) k/uL Chloride 110 H (98-107) mmol/L BUN 34 H (7-17) mg/dL Creatinine 1.20 H (0.52-1.04) mg/dL Glucose 157 H (74-99) mg/dL Calcium 6.9 L (8.4-10.2) mg/dL Ionized Calcium Kirby 4.2 L (4.5-5.3) mg/dL TIBC 138 L (228-460) ug/dL Ferritin 5465.9 H (10.0-291.0) ng/mL Total Protein 4.6 L (6.3-8.2) g/dL Albumin 2.1 L (3.5-5.0) g/dL Vitamin D 25-Hydroxy 26.5 L (30.0-100.0) ng/mL 04/23/18 Range/Units 08:38 RBC 3.34 L (3.80-5.40) m/uL Hgb 11.1 L (11.4-16.0) gm/dL Hct 33.8 L (34.0-46.0) % MCV 101.0 H (80.0-100.0) fL Neutrophils # 8.8 H (1.3-7.7) k/uL Lymphocytes # 0.4 L (1.0-4.8) k/uL Chloride (98-107) mmol/L BUN (7-17) mg/dL Creatinine (0.52-1.04) mg/dL Glucose (74-99) mg/dL Calcium (8.4-10.2) mg/dL Ionized Calcium Kirby (4.5-5.3) mg/dL TIBC (228-460) ug/dL Ferritin (10.0-291.0) ng/mL Total Protein (6.3-8.2) g/dL Albumin (3.5-5.0) g/dL Vitamin D 25-Hydroxy (30.0-100.0) ng/mL Microbiology - Last 24 Hours (Table) 04/16/18 19:56 Blood Culture - Final Blood No Growth after 144 hours 04/19/18 14:42 Blood Culture - Preliminary Blood No Growth after 72 hours 04/16/18 14:56 Blood Culture - Final Blood No Growth after 144 hours 04/19/18 13:52 Blood Culture - Preliminary Blood No Growth after 72 hours Assessment and Plan Plan: Assessment and Recs: 1. Metastatic/Recurrent Breast Cancer: - Bones Lumbar SPine - Status POst Radiation therapy - ZOmeta monthly to be initiated after discharged, but will need increase calcium. - Femara to continue while inpatient 2. Debility and Chronic illness myopathy: - Worsening over past week, multifactorial secondary to acute infection (UTI) versus decreased activity with metastatic disease - PT/OT, evaluation for IPR versus KOURTNEY versus outpatient PT - Per Primary team 3. UTI - - Difficulties in urinating, likely secondary to infection - Abx and monitor for improvement 4. Thrombocytopenia: Improved/stable - abx versus bone mets - Await CBC today 5. Hypocalcemia: - Calcium level is fluctuating, As she did recently begin AI therapy and will benefit after discharge from biphosphonate will check other causes with a baseline TSH and Vit D which are recommended prior to therapy. Also OTC Calcium Supplement is also needed with AI therapy - Ionized Calcium 4.2 - Calcium one time supp and PO Chewable (difficulty swallowing pills) ordered. Continue Supportive care, monitor for improvement. Consider Imaging of brain if symptoms do not improve Physician Attest: I have discussed the completed full history and physical and developed the full impression and plan with Violeta Leonard NP. above dictated as a scribe
[2018-04-23] MEDS ORDERED: CALCIUM GLUCONATE 1 GM in SODIUM CHLORIDE 0.9% 100 ML IVPB ONE (17:00)
[2018-04-23] MEDS: CALCIUM CARBONATE 500 MG CHEWABLE PO SCH (18:04)
[2018-04-23] MEDS: CHOLECALCIFEROL 1,000 UNIT TAB PO SCH (18:04)
[2018-04-23] MEDS: ATORVASTATIN 20 MG TAB PO SCH (20:38)
[2018-04-23] MEDS: AMOXIC-POT CLAV 500-125 MG 1 EACH TAB PO SCH (21:34)
[2018-04-24] MEDS: LEVOTHYROXINE 25 MCG TAB PO SCH (06:13)
--- NOTE | 2018-04-24 08:18 | P.DS ---
Providers Date of admission: 04/18/18 09:33 Attending physician: Burak Stoddard Consults: 04/16/18 17:29 Consult Physician Stat Consulting Provider: Manuela Ramon Consult Reason/Comments: fever, UTI, radiation patient Do you want consulting provider notified?: Yes 04/19/18 12:16 Consult Physician Urgent Consulting Provider: Trace Waldrop Reason/Comments: PNEUMONIA Do you want consulting provider notified?: Yes Primary care physician: Burak Stoddard Hospital Course: This 87-year-old female was admitted to the hospital with fever, negative throat culture, negative influenza, possible urinary tract infection. Patient chest x-ray was clear. Started on IV Rocephin with presumed UTI. Patient is lung flannery started showing suggestion of congestion. Chest x-rays x-rays were however negative. Patient continued to have low-grade fever no white count. Urine culture came back negative. Blood cultures were negative. A chest x-ray after the initial 2 were clear showed significant infiltrates in the upper lobes in the periphery. There was suspected to be a pneumonic process. The patient was switched from Rocephin to zosyn and vancomycin. Patient responded well. She was also given Lasix and initiate some significant edema with the monumental stonemason felt the patient may have congestive cardiac failure at the initial evaluation however subsequently concurred that the patient had a pneumonia. Patient did have urinary retention requiring a Rose catheter. Patient's Rose cath has been removed patient is voiding. She has significant clearing on her chest x-ray. At the time of admission she did show early sepsis with a positive lactic acid fever and tachycardia. Patient has significant hypokalemia related to use of Lasix Zosyn and steroids. Patient required high flow oxygen at 10 L to maintain adequate oxygenation. She did not have significant dyspnea. Patient's general condition is improved to the point that she is down at 2-3 L of oxygen. We will discharge the patient to nursing facility for rehab. Patient had recent radiation therapy to L5 area for carcinoma the breast metastatic lesion. She had breast cancer on the right side about 12 years ago. Patient on medical therapy at present. She will continue on Augmentin for 5 more days. She'll also continue on a tapering steroids. She will be on Lovenox for the next 1 week. Patient's creatinine scan up with use of diuretics steroids and infective process and urinary retention. We will continue to monitor renal status quickly for the next 2 weeks at the nursing facility. She will have a BMP every week for the next 2 weeks My final diagnoses 1. Bilateral pneumonia probably gram-negative 2. Early sepsis resolved 3. Carcinoma of the breast with metastasis to the L5 vertebrae 4. Acute respiratory failure 5. Acute urinary retention 6. History of irritable bowel syndrome 7. Thrombocytopenia 8. Anemia post recent radiation therapy 9. Acute kidney injury Patient Condition at Discharge: Fair Plan - Discharge Summary Discharge Rx Participant: Yes New Discharge Prescriptions: New Amoxic-Pot Clav 500-125 mg [Augmentin 500-125 mg] 1 each PO Q12HR tab Enoxaparin [Lovenox] 30 mg SQ DAILY syringe Letrozole [Femara] 2.5 mg PO DAILY tab Acetaminophen Tab [Tylenol] 650 mg PO Q6H PRN tab PRN Reason: fever Calcium Carbonate [Tums] 1,000 mg PO DAILY chew Cholecalciferol [Vitamin D3] 2,000 units PO DAILY@1200 tab predniSONE 5 mg PO DAILY #29 tab Continue traMADol HCL [Ultram] 50 mg PO TID PRN PRN Reason: Pain Levothyroxine Sodium [Synthroid] 25 mcg PO DAILY Cholestyramine (with Sugar) [Cholestyramine Packet] 4 gm PO DAILY Bisoprolol-Hctz 2.5-6.25 mg [Ziac 2.5-6.25 MG] 1 tab PO DAILY Aspirin [Adult Low Dose Aspirin EC] 81 mg PO DAILY Simvastatin [Zocor] 40 mg PO HS Changed Cholecalciferol [Vitamin D3] 2,000 units PO DAILY #30 Discontinued Dexamethasone See Taper PO DIRECTED Discharge Medication List Bisoprolol-Hctz 2.5-6.25 mg [Ziac 2.5-6.25 MG] 1 tab PO DAILY 03/10/18 [History] Cholestyramine (with Sugar) [Cholestyramine Packet] 4 gm PO DAILY 03/10/18 [ History] Levothyroxine Sodium [Synthroid] 25 mcg PO DAILY 03/10/18 [History] traMADol HCL [Ultram] 50 mg PO TID PRN 03/10/18 [History] Aspirin [Adult Low Dose Aspirin EC] 81 mg PO DAILY 03/13/18 [History] Simvastatin [Zocor] 40 mg PO HS 04/16/18 [History] Acetaminophen Tab [Tylenol] 650 mg PO Q6H PRN tab 04/24/18 [Rx] Amoxic-Pot Clav 500-125 mg [Augmentin 500-125 mg] 1 each PO Q12HR tab 04/24/18 [Rx] Calcium Carbonate [Tums] 1,000 mg PO DAILY chew 04/24/18 [Rx] Cholecalciferol [Vitamin D3] 2,000 units PO DAILY #30 04/24/18 [Rx] Cholecalciferol [Vitamin D3] 2,000 units PO DAILY@1200 tab 04/24/18 [Rx] Enoxaparin [Lovenox] 30 mg SQ DAILY syringe 04/24/18 [Rx] Letrozole [Femara] 2.5 mg PO DAILY tab 04/24/18 [Rx] predniSONE 5 mg PO DAILY #29 tab 04/24/18 [Rx] Follow up Appointment(s)/Referral(s): Burak Stoddard MD [Primary Care Provider] - 1-2 days Manish Mujica, [NON-STAFF] - As Needed
--- NOTE | 2018-04-24 08:29 | XR ---
EXAMINATION TYPE: XR chest 1V portable DATE OF EXAM: 04/24/2018 COMPARISON: 04/22/2018 INDICATION: Pneumonia TECHNIQUE: Single frontal view of the chest is obtained. FINDINGS: The heart size is normal. The pulmonary vasculature is normal. Patchy infiltrates are present through the bilateral lung flannery. These are improving from comparison . Surgical clips in the right axillary region. IMPRESSION: 1. Bilateral patchy infiltrates, improving from comparison. Continued follow-up is recommended.
[2018-04-24] MEDS ORDERED: predniSONE 20 MG TAB PO SCH (09:00)
[2018-04-24] MEDS: CHOLECALCIFEROL 1,000 UNIT TAB PO SCH (09:03)
[2018-04-24] MEDS: ASPIRIN 81 MG PO SCH (09:03)
[2018-04-24] MEDS: POTASSIUM CHLORIDE ER 10 MEQ TAB.ER.PRT PO SCH (09:04)
[2018-04-24] MEDS: CALCIUM CARBONATE 500 MG CHEWABLE PO SCH (09:04)
[2018-04-24] MEDS: AMOXIC-POT CLAV 500-125 MG 1 EACH TAB PO SCH (09:05)
[2018-04-24] MEDS: LETROZOLE 2.5 MG TAB PO SCH (09:05)
[2018-04-24] MEDS: BISOPROLOL-HCTZ 2.5-6.25 MG 1 EACH TAB PO SCH (09:07)
[2018-04-24 10:09] LABS: Albumin 2.3 g/dL (3.5-5.0); Calcium 7.9 mg/dL (8.4-10.2); Potassium 3.9 mmol/L (3.5-5.1); Total Bilirubin 0.5 mg/dL (0.2-1.3)
[2018-04-24 10:13] LABS: Basophils # (A) 0.1 k/uL (0-0.2); Basophils % (A) 1 %; Eosinophils # (A) 0.1 k/uL (0-0.7); Eosinophils % (A) 1 %; HCT 37.4 % (34.0-46.0); HGB 11.9 gm/dL (11.4-16.0); Lymphocytes # (A) 0.8 k/uL (1.0-4.8); Lymphocytes % (A) 8 %; MCH 31.8 pg (25.0-35.0); MCHC 31.7 g/dL (31.0-37.0); MCV 100.3 fL (80.0-100.0); Macrocytosis Slight; Mean Platelet Volume 8.4; Monocytes # (A) 0.3 k/uL (0-1.0); Monocytes % (A) 3 %; Neutrophils # (A) 8.8 k/uL (1.3-7.7); Neutrophils % (A) 87 %; Platelet Count 211 k/uL (150-450); RBC 3.73 m/uL (3.80-5.40); RDW 14.6 % (11.5-15.5); WBC 10.1 k/uL (3.8-10.6)
[2018-04-24 12:07] VITALS: BP 122/61; PULSE 104; RESP 18; TEMP 97.8
--- NOTE | 2018-04-24 14:07 | P.PN ---
Subjective Progress Note Date: 04/24/18 Principal diagnosis: Hypoxic respiratory failure secondary to bilateral pneumonia in immunocompromised patient This is a 87-year-old white female patient of Dr. Stoddard, with past medical history of right breast cancer diagnosed in 2006, status post lumpectomy, and chemoradiation. 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 On 03/13/2018 biopsy of L3/L4 was positive for metastatic carcinoma consistent with breast primary. Patient completed radiation therapy to L3/L4 on 04/07/2018. After radiation treatment patient was experiencing progressive weakness, fatigue, she had fallen at home. She had decreased appetite. She follows with Dr. Ramon who has started the patient on Femara and monthly Zometa for bone metastases. She came into the hospital on 04/16/2018 for the above-mentioned symptoms of weakness, falls, and fatigue. Initial chest x-ray showed no suspicious focal consolidation. Blood work showed white blood cell count of 6.6, hemoglobin of 12.0, platelets are profile was within normal limits, sodium was 139, potassium 3.9, chloride is 109, CO2 was 26, BUN was 17, creatinine was 0.68, LFTs were within normal limits, troponin was mildly elevated at 0.043, proBNP was within normal limits at 635, plasma lactic acid on admission was mildly elevated at 2.1 and improved with hydration at 1.5. Urinalysis showed red blood cells, white blood cells of 45, negative leuks. Influenza screen was negative. Group A strep throat culture, blood culture, urine cultures have been negative thus far. Patient was started on IV Rocephin in the emergency department. Today on 04/19/2018 patient started experiencing acute hypoxemia, her pulse ox is only 88% on 4 L per nasal cannula, she is febrile with a temp of 100.6F, slightly tachycardic. Chest x- ray today showed new bilateral airspace disease in the peripheral upper lobes, small posterior basilar opacity that could reflect underlying infiltrative small effusion. Patient was given 1 dose of IV Lasix 40 mg, antibiotic coverage was switched to Zosyn and vancomycin and this consult was initiated. Patient was reevaluated today on 04/20/2018, clinically she is feeling much better, her chest x-ray is basically about the same. Continues to have interstitial airspace disease in the upper lobes, seems to be classic for pulmonary edema however patient had a relatively normal echocardiogram, normal BNP level, and chest x-ray did not improve much with diuretics. Patient remains on high flow nasal cannula and her O2 saturation is 93%. She does have a temp of 100.4. No leukocytosis. Her potassium is low down to 2.4, being corrected as per protocol. Blood cultures and urine cultures remain negative so far Patient was seen again on 04/21/2018, seen for follow-up on her bilateral upper lobe pneumonia. Clinically the patient is feeling better, breathing a lot easier, she remains on antibiotics, and yesterday I added steroids just in case we are dealing with a picture of bronchitis obliterans with organizing pneumonia.labs were reviewed, patient was noted to have a low potassium being corrected as per protocol.slightly elevated pro calcitonin,however clinically the patient is feeling better.she was on high flow nasal cannula at 10 L, and I was able to cut it down to 7 L, O2 sat saturation remains at 94%. Patient was reevaluated today on 04/22/2018, continues to gradually feel better, chest x-ray is definitely showing improvement. Cultures remain negative, including blood and urine. No sputum cultures were sent. Patient remains on vancomycin and Zosyn, however I believe at this point the patient could be switched to Augmentin, and that will be decided upon by infectious disease on the case. In the meantime I will switch her Solu-Medrol to prednisone in a.m., and possibly taper the prednisone over the next 2-3 weeks. Patient may have a component of bronchitis obliterans with organizing pneumonia, hence the steroid should be continued.labs today were reviewed, potassium is improving. Electrolytes are relatively unremarkable.CBC is relatively normal. Reevaluated today on 04/23/2018, patient is now down to 4 L nasal cannula, saturating quite nicely.her O2 saturation is 92% on 4 L. Clinically improving, chest x-ray was not done today,planning to have a repeat chest x-ray tomorrow. In the meantime the patient was switched already to Augmentin. She is already on oral prednisone, and will likely consider after reviewing the chest x-ray tomorrow possible discharge planning. Clinically again the patient is doing great.labs were reviewed, she had a relatively normal electrolytes, normal CBC, creatinine is up to 1.20. Lasix has been discontinued On 04/24/2018 patient seen in follow-up in oncology floor. She is resting comfortably in bed, in no acute distress, currently on 3 L of oxygen per nasal cannula, and her pulse ox is 92%, she is afebrile, hemodynamically is stable, her breathing is improving. Blood, and urine cultures are all negative, group A strep throat culture was negative. Patient has been treated with Zosyn and vancomycin, and is currently on oral Augmentin, she had been transitioned to oral prednisone, she is feeling better, his blood work has been reviewed, white blood cell count is 10.1, hemoglobin is 11.9, serum sodium is 142, potassium is 3.9, chloride is 109, BUN was 35, creatinine is 1.12. No fever or chills, lung sounds are clear, no rhonchi, no wheezing. Patient is being discharged to [facility] today Objective - Vital Signs Vital signs: Vital Signs Temp 97.8 F 04/24/18 12:06 Pulse 104 H 04/24/18 12:06 Resp 18 04/24/18 12:06 BP 122/61 04/24/18 12:06 Pulse Ox 92 L 04/24/18 12:06 Intake & Output 04/23/18 04/24/18 04/24/18 18:59 06:59 18:59 Intake Total 360 680 Output Total 1200 300 Balance -840 380 Intake: Oral 360 680 Output: Urine 1200 300 Uretheral (Rose) 200 Other: Voiding Method Indwelling Catheter Bedside Commode # Voids 1 1 # Bowel Movements 2 - Exam GENERAL EXAM: Alert, pleasant, 87-year-old white female, currently on 3 days per nasal cannula comfortable in no apparent distress. HEAD: Normocephalic/atraumatic. EYES: Normal reaction of pupils, equal size. Conjunctiva pink, sclera white. NOSE: Clear with pink turbinates. THROAT: No erythema or exudates. NECK: No masses, no JVD, no thyroid enlargement, no adenopathy. CHEST: No chest wall deformity. Symmetrical expansion. LUNGS: Equal air entry with no crackles, wheeze, rhonchi or dullness. CVS: Regular rate and rhythm, normal S1 and S2, no gallops, no murmurs, no rubs ABDOMEN: Soft, nontender. No hepatosplenomegaly, normal bowel sounds, no guarding or rigidity. EXTREMITIES: No clubbing, no edema, no cyanosis, 2+ pulses and upper and lower extremities. MUSCULOSKELETAL: Muscle strength and tone normal. SPINE: No scoliosis or deformity SKIN: No rashes CENTRAL NERVOUS SYSTEM: Alert and oriented -3. No focal deficits, tone is normal in all 4 extremities. PSYCHIATRIC: Alert and oriented -3. Appropriate affect. Intact judgment and insight. - Labs CBC & Chem 7: 04/24/18 09:45 04/24/18 09:45 Labs: Abnormal Lab Results - Last 24 Hours (Table) 04/24/18 04/24/18 Range/Units 09:45 09:45 RBC 3.73 L (3.80-5.40) m/uL MCV 100.3 H (80.0-100.0) fL Neutrophils # 8.8 H (1.3-7.7) k/uL Lymphocytes # 0.8 L (1.0-4.8) k/uL Chloride 109 H (98-107) mmol/L BUN 35 H (7-17) mg/dL Creatinine 1.12 H (0.52-1.04) mg/dL Calcium 7.9 L (8.4-10.2) mg/dL AST 41 H (14-36) U/L Alkaline Phosphatase 133 H (38-126) U/L Total Protein 5.0 L (6.3-8.2) g/dL Albumin 2.3 L (3.5-5.0) g/dL Microbiology - Last 24 Hours (Table) 04/19/18 14:42 Blood Culture - Preliminary Blood No Growth after 96 hours 04/19/18 13:52 Blood Culture - Preliminary Blood No Growth after 96 hours Assessment and Plan Plan: Assessment: #1. Acute hypoxemic respiratory failure secondary to bilateral pneumonia involving upper lobes, likely gram-negative in nature, patient had been treated with Zosyn and vancomycin, currently on Augmentin, hypoxia has improved, currently down to 3 L per nasal cannula #2. History of right breast cancer, status post lumpectomy, and chemoradiation , diagnosed in 2005 #3. Recent recurrence of metastatic breast cancer, patient had a biopsy of L3 and L4 in March 2018 after discovery of destructive bone lesions involving the L3 and L4 with encroachment upon the spinal canal. Biopsy was positive for metastatic carcinoma consistent with breast primary. Patient has recently received radiation treatment #4. Progressive weakness, fatigue, falls at home, decreased appetite and functional performance #5. Lactic acidosis present on admission, improved with IV hydration, and the source of sepsis could is likely pulmonary in nature #6. Hypertension, hyperlipidemia #7. Hypothyroidism #8. Former smoker #9. Urinary retention #10. Cannot rule out bronchiolitis obliterans with organizing pneumonia Plan: Patient can continue on oral Augmentin, oral prednisone, nebulizer bronchodilators, patient is stable for discharge to the subacute rehab today from pulmonary perspective, her breathing is improving, she is down to 3 L per nasal cannula, today's chest x-ray has been reviewed with Dr. Waldrop showed bilateral patchy infiltrates, improving from previous exam. Patient will need to be seen in follow-up by Dr. Ayala in the office in 7-10 days. I performed a history & physical examination of the patient and discussed their management with my nurse practitioner, Corazon Arnold. I reviewed the nurse practitioner's note and agree with the documented findings and plan of care. Lung sounds are positive for diminished breath sounds. The findings and the impression was discussed with the patient. I attest to the documentation by the nurse practitioner. Time with Patient: Less than 30
== END 2018-04-24 15:51 | DRG 871 ==
LOC: EC 11:37 → INTOOBSV 17:24 → 3NMEDONC 17:24 → OBSVTOIN 04-18 09:33
PROVIDERS: ADMIT Internal Medicine; ATTEND Internal Medicine
DX: A41.50 Gram-negative sepsis, unspecified (principal); J15.6 Pneumonia due to other Gram-negative bacteria; J96.01 Acute respiratory failure with hypoxia; J91.8 Pleural effusion in other conditions classified elsewhere; C79.51 Secondary malignant neoplasm of bone; E44.0 Moderate protein-calorie malnutrition; E87.2 Acidosis; N17.9 Acute kidney failure, unspecified; Z87.891 Personal history of nicotine dependence; C50.911 Malignant neoplasm of unspecified site of right female breast; Z17.0 Estrogen receptor positive status [ER+]; T66.XXXS Radiation sickness, unspecified, sequela; D64.89 Other specified anemias; D69.6 Thrombocytopenia, unspecified; D89.9 Disorder involving the immune mechanism, unspecified; E03.9 Hypothyroidism, unspecified; E78.5 Hyperlipidemia, unspecified; E83.51 Hypocalcemia; E87.6 Hypokalemia; I10 Essential (primary) hypertension; I89.0 Lymphedema, not elsewhere classified; K58.0 Irritable bowel syndrome with diarrhea; T38.0X5A Adverse effect of glucocorticoids and synthetic analogues, initial encounter; Z91.81 History of falling; Z79.82 Long term (current) use of aspirin; Z79.890 Hormone replacement therapy; Z92.241 Personal history of systemic steroid therapy; Z92.3 Personal history of irradiation; Z88.5 Allergy status to narcotic agent; Z98.42 Cataract extraction status, left eye; Z98.41 Cataract extraction status, right eye; Z53.8 Procedure and treatment not carried out for other reasons; R74.8 Abnormal levels of other serum enzymes; K58.9 Irritable bowel syndrome, unspecified; Z79.899 Other long term (current) drug therapy; R33.9 Retention of urine, unspecified
CPT/HCPCS: 36415; 70450; 71045; 71046; 80048; 80053; 80202; 81001; 82306; 82330; 82550; 82553; 82728; 83540; 83550; 83605; 83880; 84145; 84443; 84484; 85025; 85027; 85610; 85652; 85730; 87040; 87081; 87086; 87430; 87502; 93005; 93306; 94760; 96360; 96361; 99285

== ENCOUNTER → 2021-06-17 | Outpatient (CLI) | payer MEDICARE ==
--- NOTE | 2021-06-17 17:14 | BD ---
EXAMINATION TYPE: Axial Bone Density DATE OF EXAM: 06/17/2021 COMPARISON: NONE CLINICAL HISTORY: 89 years year old Female. ICD-10 CODE: C50.919 breast cancer Height: 62.5 Weight: 181.4 FRAX RISK QUESTIONS: Alcohol (3 or more units per day): no Family History (Parent hip fracture): no Glucocorticoids (More than 3mos): no (Ex: prednisone, prednisolone, methylprednisolone, dexamethasone, and hydrocortisone). History of Fracture in Adulthood: no Secondary Osteoporosis: 1. Type 1 Diabetes: no 2. Hyperthyroidism: no 3. Menopause before 45: no 4. Malnutrition: no 5. Chronic liver disease: no Rheumatoid Arthritis: no Current Tobacco Use: no RISK FACTORS HISTORY OF: Surgery to Spine/Hip(right/left)/Wrist (right/left): yes When: age 88 Family History of Osteoporosis: yes Active: yes Diet low in dairy products/other sources of calcium: no Postmenopausal woman: yes Lost more than 2 inches in height since high school: yes MEDICATIONS: Additional History: Femara EXAM MEASUREMENTS: Bone mineral densitometry was performed using the [employer] Interventional System Bone mineral density about the R hip (g/cm2): 0.730 Bone mineral density about the L hip (g/cm2): 0.734 T Score values are as follows: -----R Neck: -2.2 -----L Neck: -2.2 -----R Total: -1.3 -----L Total: -1.3 Bone mineral density has: increased 2.3 % since study of: 07.27.2004 Bone mineral density about the L Wrist (g/cm2): 0.574 T Score values are as follows: -----Dist. R+U: -1.7 -----Prox. R+U: -1.4 -----Radius total: -1.7 Bone mineral density has Baseline FRAX%s: The graph provided illustrates a 19.6% chance for a major osteoporotic fx and a 6.0 chance fo r the hips probability for fx in 10 years time. IMPRESSION: Osteopenia (T Score between -2.5 and -1). There is slightly increased risk of fracture and the patient may be considered for treatment. Re-Screen 2-5 years. NOTE: T-SCORE=SD OF THE YOUNG ADULT MEAN.
== END | disposition home or self-care (01) ==
LOC: RADBDWWP 09:54
PROVIDERS: ATTEND Internal Medicine Hematology & Oncology
DX: M85.89 Other specified disorders of bone density and structure, multiple sites (principal)
CPT/HCPCS: 77080